=== PATIENT | female | born 1945 | race Caucasian/White ===

== ENCOUNTER 2019-12-28 17:19 | Inpatient (IN) | payer OTHER, MEDICARE ==
[~2019-12-28] VITALS: Ht 157.5 cm; Wt 56.4 kg
[2019-12-28 17:23] VITALS: BP 130/59
[2019-12-28] MEDS ORDERED: LISINOPRIL40 MG PO (17:35)
[2019-12-28] MEDS ORDERED: METFORMIN HCL500 M3 PO (17:35)
[2019-12-28] MEDS ORDERED: EZALLOR SPRINKL10 MG PO (17:36)
[2019-12-28] MEDS ORDERED: LAMOTRIGINE250 MG PO (17:36)
[2019-12-28] MEDS ORDERED: NORVASC5 M1 PO (17:36)
[2019-12-28] MEDS ORDERED: ASA81BEC PO (17:36)
[2019-12-28] MEDS ORDERED: B12INJ PO (17:37)
[2019-12-28 17:46] LABS: URINE BLOOD NEGATIVE (Negative); URINE CLARITY CLEAR; URINE COLOR YELLOW; URINE GLUCOSE-RANDOM* NEGATIVE (Negative); URINE KETONES TRACE (Negative); URINE NITRITE-REFLEX NEGATIVE (Negative); URINE PROTEIN (DIPSTICK) NEGATIVE (Negative); URINE SPECIFIC GRAVITY >= 1.030 (1.005-1.035); URINE UROBILINOGEN 0.2 E.U./dl (0.2-1.0)
[2019-12-28 17:54] LABS: ICTOTEST (BILI CONFIRMATORY) Negative (Negative); URINE BILIRUBIN NEGATIVE (Negative); URINE LEUKOCYTES-REFLEX 1+ (Negative)
[2019-12-28 18:00] LABS: AMP/METHAMP Negative (Negative); BARBITURATES Negative (Negative); BENZODIAZEPINES Negative (Negative); COCAINE Negative (Negative); METHADONE Negative (Negative); OPIATES Negative (Negative); PCP Negative (Negative)
[2019-12-28 18:08] LABS: ABSOLUTE NEUTROPHILS 4.6 thou/uL (1.4-8.2); BASOPHILS 1.2 % (0.0-2.0); EOSINOPHILS 2.1 % (0.0-3.0); HEMATOCRIT 41.2 % (37.0-47.0); HEMOGLOBIN 13.9 gm/dL (12.0-15.0); LYMPHOCYTES 28.5 % (24.0-44.0); MCH 31.1 pg (26.0-34.0); MCHC 33.6 g/dL (28.0-37.0); MCV 92.5 fL (80.0-100.0); MONOCYTES 8.5 % (1.0-8.0); PLATELET COUNT 327 thou/uL (150-400); POLYS 59.7 % (36.0-66.0); RBC 4.46 mil/uL (4.20-5.00); RDW 13.2 % (10.5-14.5); WBC 7.8 thou/uL (4.0-11.0)
[2019-12-28 18:09] LABS: CASTS None Seen /LPF (None Seen); SQUAMOUS 4-10 Moderate /LPF (0-3)
[2019-12-28 18:10] LABS: CALCIUM OXALATE 0-3 Few /LPF (None Seen); YEAST-REFLEX Present (None Seen)
[2019-12-28 18:11] LABS: BACTERIA-REFLEX 1-9 Few /HPF (None Seen); URINE RBC None Seen /HPF (0-2); URINE WBC-REFLEX 6-15 Few /HPF (0-5)
[2019-12-28 18:17] LABS: CALCIUM 8.9 mg/dL (8.5-10.1); CREATININE 1.2 mg/dL (0.6-1.0); POTASSIUM 4.1 mmol/L (3.5-5.1)
[2019-12-28 18:23] LABS: ALBUMIN 4.3 g/dL (3.4-5.0); TOTAL BILIRUBIN 0.6 mg/dL (<0.1-1.0); TOTAL PROTEIN 8.6 g/dL (6.4-8.2)
[2019-12-28 21:30] VITALS: BP 151/78
[2019-12-29 00:16] LABS: TSH 0.901 uIU/mL (0.358-3.740)
--- NOTE | 2019-12-29 00:29 | NUR ---
Arrived via stretcher with x1 staff from the [facility] Emergency Department on 12/28/19 @ 21:30. Arrived on the floor on 12/28/19 @ 19:30 accompanied by x1 staff from the [facility] Emergency Dept. Transferred to bed 527B. Box lunch obtained as patient reported that she had not eaten today. Ate 50% of box and drank 100%of apple juice x 2. A&Ox4, Confusion noted. Tearful at times, referring to who passed 2 years ago. Heart Rate and Rhythm Regular, Lungs CTA bilateraly, ABD Normoactive bowel sounds. Reports loose soft BM x 2 today. Abdomen round and soft. Reports tender area in upper left abdomen upon palpation. Reports diverticulitis and avoids seeds and spicy food. Diabetes 2 reported with Metformin 500 bid medication, no insulin currently used. Skin is soft, warm and dry. Skin on back and buttocks is intact, Skin on front of torso in warm pink and intact. Heels are intact, no boggy and without breakdown. Pedal Pulses Present bilat. Pt reports that "I used to have neuropathy", and denies pain in her feet. Fingers are noted to tremble slightly, reports the trembling is since her stroke. Reports hands are numb. Reports back pain in the middle and lower back. Says that the pain is better if she lies on one side and then the other. Wears glasses. Has x2 hearing aids. [employer] noted when hearing aides are out of ears. No dentures, no teeth in the upper gums. Own teeth in lower gums. Ring on right hand, patient says will not come off, the ring on the left hand was inventoried and sent to the safe in security. Ambulates independently, reports that she likes to have a stand by assist. Reports that is continent and does not require a brief. Reports that sleeps okay, then wakes up in the night. Trazadone 50 provided for insomnia @ 0015. In bed at this writing, bed in low position, bed alarm set, 2 handrails up for patient mobility. Will continue to round q 12 minutes for patient safety.
[2019-12-29 08:29] VITALS: BP 133/61
--- NOTE | 2019-12-29 14:04 | NUR ---
Christi called [facility] and completed the intake assessment and TP. Pt worked at [employer] for 25 years. Pt will likely d/c back to her [facility]'s home. She has been living there for 6 months. Pt has a HX of RI and is seeing Dr Souleymane Herbert, her PCP is Dr Briceno. [facility] will set up f/u appts for this pt for first week of January.
--- NOTE | 2019-12-29 18:51 | NUR ---
PATIENT HAS BEEN TEARFULL TODAY IN REGARDS TO HER HUSBANDS . AT THIS TIME PATIENT IS PARANOID AND STATING "THEY ARE HERE TO TAKE ME AWAY". PATIENT SAYS SHE CAN NOT SLEEP AND DID NOT WANT TO GO INTO HER ROOM SHE FEELS LIKE THEY WILL GET HER. PATIENT CLAIMS THAT THE PEOPLE IN YELLOW WILL TAKE HER TONIGHT. PATIENT UPSET WITH DAUGHTER FOR TREATING HER IN SUCH A BED MANOR. PATIENT STATES "MY DAUGHTER CURSES AT ME AND I DON'T KNOW WHY". VEGETABLE WASHER ATTEMPTED TO CALM PATIENT DOWN BUT CONTINUES TO BE PARINOID WITH WHAT VEGETABLE WASHER AND OTHER MIGHT DO TO HER. WILL REPORT OFF TO CNC WOOD LATHE OPERATOR.
[2019-12-29 19:47] VITALS: BP 92/52
--- NOTE | 2019-12-29 22:25 | H ---
[facility] [place] [address] HISTORY AND PHYSICAL Name: DANNY HAYS Room #: 527B-B ADM IN M.R.#: [id number] Admission: 12/28/19 Attend Phys: Iggy Valladares DO Discharge: Date of : 45 Report #: [id number] THIS REPORT FOR: cc: Tra Briceno MD,Iggy Phoenix MD, DO ~ CC: Iggy Briceno DATE OF SERVICE: 12/29/2019 INPATIENT PSYCHIATRIC EVALUATION ATTENDING PHYSICIAN: Iggy Valladares DO BILINGUAL SALES ASSISTANT: Edgar Suarez MD HAZARD WASTE HANDLER: Dr. Aviles. PSYCHIATRIST: Dr. Ronnell Parham. PCP: Dr. Briceno. REASON FOR ADMISSION: Concern for psychosis, probable history of dementia, history of bipolar disorder as well. HISTORY OF PRESENT ILLNESS: This is a 74-year-old female living with her daughter, Keya. Her daughter, Keya, brought her to the Emergency Room last night. I tried to reach Keya by phone and left her a voicemail, will add some collateral as it is forthcoming. From the Emergency Room report that for the past 2 weeks, patient has been forgetful, losing things around the house. The daughter thought little bit considering the patient's age and the forgetfulness was minor; 4 days ago, the patient developed increasing confusion, routinely asks the same questions repeatedly. The patient has been sad lately, crying most mornings and before bed. The patient became paranoid at the start of the COVID pandemic and withdrew all money from her bank account fearing the barker would close. The patient has an episode of paranoia every 1-2 years. Last episode was about 26 months ago, 2 months before her . After the which was in 01/2018, the patient moved in with children in [place] who evidently accused her of killing her . The patient recently moved to [place] to stay with her daughter. She has had 1 appointment with a psychiatrist here, has a second appointment in January. The patient has been anxious and depressed. The patient was prescribed Lamictal. PAST PSYCHIATRIC HISTORY: Bipolar 1. Hospitalization 2018 around time of husbands , Since 1998 has feature where she will talk in [facility] [address] [place] [address] HISTORY AND PHYSICAL Name: DANNY HAYS Room #: 527B-B ADM IN M.R.#: [id number] Admission: 12/28/19 Attend Phys: Iggy Valladares DO Discharge: Date of : 45 Report #: [id number] voice- not Dissociative in nature according to the daughter. Social HX: 3 x- last marriage was 45 years PAST MEDICAL HISTORY: Three strokes in 2016, last one was 04/18/2017; generalized anxiety; history of diverticulitis, diabetes mellitus. Family Psych Hx: Maternal Grandmother suicide, daughter in [place] Alcoholism REVIEW OF SYSTEMS: Denied any cough, fever, chills, shortness of breath, nausea, vomiting, suicidal or homicidal ideation. HOME MEDICATIONS: Metformin 500 mg p.o. b.i.d., lisinopril 40 mg p.o. daily, amlodipine 5 mg p.o. daily, lamotrigine 100 mg p.o. daily, aspirin 81 mg p.o. oral daily, rosuvastatin 10 mg p.o. daily, vitamin B12 1000 mcg p.o. weekly. ALLERGIES: No known allergies. SOCIAL HISTORY: Denied tobacco, alcohol or recreational drug use. ADDITIONAL REVIEW OF SYSTEMS: From the ER: CONSTITUTIONAL: Denies fever, chills, malaise, unexplained weight change. EYES: Denies eye pain, visual change or discharge. HENT: Denies hearing changes, ear drainage, ear infections, ear pain, neck pain or neck stiffness. RESPIRATORY: Denies cough, shortness of breath, hemoptysis or respiratory distress. CARDIOVASCULAR: Denies chest pain, chest pain with exertion or edema. GASTROINTESTINAL: Denies abdominal pain, nausea, vomiting or diarrhea. GENITOURINARY: Denies burning, frequency or dysuria. MUSCULOSKELETAL: Denies back pain, joint pain, muscle weakness or myalgias. SKIN: Denies rash. NEUROLOGIC: Denies weakness, headache, loss of consciousness. PSYCHIATRIC: As above. Otherwise, 10-point review of systems was negative. Weight 54.79 kg, BMI 21.8. PHYSICAL EXAMINATION: Grossly normal. LABORATORY DATA: From the Emergency Room, white count 7.8, H and H 13.9 and 41.2, platelet count 327, sodium 142, potassium 4.1, chloride 104, bicarbonate 26, BUN 19, creatinine 1.2, estimated GFR 44, glucose 149, calcium 8.9, total bilirubin 0.6, AST 18, ALT 29, alkaline phosphatase 144, total protein 8.6, albumin 4.3, vitamin B12 of 2111. TSH 0.901. Urinalysis was positive for bacteria, calcium oxalate, squamous epithelial cells. White blood cell count, leukocyte esterase and yeast microbiology culture on the urine has been sent. [address] [address] HISTORY AND PHYSICAL Name: DANNY HAYS Room #: 527B-B ADM IN .Pieter.#: [id number] Admission: 12/28/19 Attend Phys: Iggy Valladares, DO Discharge: Date of : 45 Report #: [id number] MEDICATIONS IN THE HOSPITAL: The ER gave her Keflex. I elected to start her on minocycline 100 mg b.i.d. for 10 days. She is on atorvastatin 10 mg p.o. at bedtime and house B12 1000 mcg twice a week IM which we will discontinue as her level was high, lisinopril 40 mg p.o. daily, lamotrigine 100 mg p.o. daily, aspirin 325 mg p.o. daily, Norvasc 5 mg p.o. daily, metformin 500 mg b.i.d., trazodone 50 mg p.o. at bedtime p.r.n. Otherwise, house PRNs. No imaging done yesterday. When I interviewed her today, she stated that she does have some memory problems. She did not know exactly why her daughter brought her to the hospital. She is oriented to person, place, situation and time. She had no specific complaints. She denied SI, HI, auditory, visual, or tactile hallucinations. PHYSICAL EXAMINATION: GENERAL: Frail appearing. Normal gait and station. MENTAL STATUS EXAMINATION: This is a well-developed, appearing undernourished female, wearing glasses, appearing stated age. Attention fair. Concentration fair. Speech is normal in rate. Thought process, linear and goal directed. Thought content, relative poverty of thought. The patient does report hearing not working in her right ear. No psychomotor agitation. No psychomotor retardation. Mood and affect were congruent, euthymic, fair range. Insight limited. Judgment fair. Fund of knowledge at least average. FORMULATION: A 74-year-old female brought in for symptoms of psychosis. The patient has a probable history of dementia process. I think at this point, the patient would benefit from Seroquel for anxiety and possibly psychosis. I will get her started on this. Discussed some more with the daughter, also I have some questions for the daughter that will need to be answered to gather to help workup. Daughter states she wants patient to come back to live with her. She reports remote memories well preserved. I discussed we will do cognitive screen. ESTIMATED LENGTH OF STAY: 10-14 days. STRENGTHS: Insured, supportive family. WEAKNESSES: Advancing age, multiple morbidities, history of mental illness. [facility] [address] [place] [address] HISTORY AND PHYSICAL Name: DANNY HAYS Room #: 527B-B ADM IN M.R.#: [id number] Admission: 12/28/19 Attend Phys: Iggy Valladares DO Discharge: Date of : 45 Report #: [id number] Time spent on this case at least 45 minutes. <ELECTRONICALLY SIGNED> By: Iggy Valladares DO 12/29/19 2225 1309 1430 Iggy Valladares, DO /nt
--- NOTE | 2019-12-30 01:05 | NUR ---
Assumed care of patient this pm shift. Patient is confused and oriented to self at this time. Patient denies hi/si. Patient takes medications whole. Patient ambulates without assistance; patients gate is unsteady. Patient states that "I didnt do anything wrong." Patients assessment shows clear breath sounds, active bowel sounds, and s1 s2 heard with auscultation. We will continue to monitor.
[2019-12-30 05:27] LABS: HEMATOCRIT 35.4 % (37.0-47.0); MCH 31.1 pg (26.0-34.0); MCHC 33.4 g/dL (28.0-37.0); MCV 93.1 fL (80.0-100.0); RBC 3.81 mil/uL (4.20-5.00); RDW 13.3 % (10.5-14.5); WBC 6.1 thou/uL (4.0-11.0)
[2019-12-30 05:33] LABS: HEMOGLOBIN 11.8 gm/dL (12.0-15.0)
[2019-12-30 05:40] LABS: CALCIUM 9.5 mg/dL (8.5-10.1); CREATININE 1.2 mg/dL (0.6-1.0); MAGNESIUM 1.4 mg/dL (1.8-2.4); POTASSIUM 4.5 mmol/L (3.5-5.1)
[2019-12-30 07:52] VITALS: BP 126/55
[2019-12-30 11:20] VITALS: BP 151/93
[2019-12-30 14:30] VITALS: BP 126/55
--- NOTE | 2019-12-30 14:35 | NUR ---
ASSUMED CARE AT 0700 THIS MORNING. PT. IN HER ROOM LAYING IN HER BED. SHE IS TEARFUL. SHE HAD TO BE COAXED INTO TAKING HER MEDICATIONS TODAY. SHE KEPT STATING, "I DON'T TAKE ANY MEDICATIONS". SHE DID, HOWEVER, TAKE THE MEDICATIONS. SHE WAS TEARFUL WHEN SHE CAME ONTO THE UNIT TODAY. HER DAUGHTER CALLED AND WAS GIVEN AN UPDATE.
[2019-12-30 19:35] VITALS: BP 160/72
--- NOTE | 2019-12-30 21:00 | NUR ---
Assumed care of patient this pm shift. Patient displays some paranoia and anxiety with RN. Patients affect is flat. Patient denies si. Patient alert and oriented to self only. Patient takes medications whole. Patient ambulates without assistance. Patient states that she needs to urinate but refuses to use the toilet in her room. Patient does not display any aggressive behaviors. Patients assessment shows clear breath sounds, active bowel sounds, and s1 s2 heard with ausculatation. Patient is dressed neatly in her own clothing. We will continue to monitor.
[2019-12-30 23:05] VITALS: BP 160/72
[2019-12-31 00:45] VITALS: BP 111/41
--- NOTE | 2019-12-31 00:54 | NUR ---
Patient fell this evening at 1121pm. Patient was holding the rail and lost balance and fell to the floor landing in a supine position hitting the back of her head. Vital signs were taken immediately after the fall, then within 15 minutes and finally an hour later. Vital signs appear stable. Patients orientation at the time of fall was her baseline at this point exhibiting confusion. No change from pre-fall status. Patient obtained a bruise on the back of her head. Patti Chavez NP was notified. Patients family was notified. We will continue to monitor.
[2019-12-31 04:49] LABS: ABSOLUTE NEUTROPHILS 9.7 thou/uL (1.4-8.2); BASOPHILS 0.4 % (0.0-2.0); EOSINOPHILS 0.3 % (0.0-3.0); HEMATOCRIT 36.8 % (37.0-47.0); HEMOGLOBIN 12.2 gm/dL (12.0-15.0); MCHC 33.3 g/dL (28.0-37.0); MCV 93.2 fL (80.0-100.0); MONOCYTES 4.2 % (1.0-8.0); PLATELET COUNT 250 thou/uL (150-400); POLYS 86.1 % (36.0-66.0); RBC 3.95 mil/uL (4.20-5.00); RDW 13.5 % (10.5-14.5); WBC 11.3 thou/uL (4.0-11.0)
[2019-12-31 05:08] LABS: ALBUMIN 3.9 g/dL (3.4-5.0); CALCIUM 9.9 mg/dL (8.5-10.1); CREATININE 1.4 mg/dL (0.6-1.0); POTASSIUM 5.4 mmol/L (3.5-5.1); TOTAL BILIRUBIN 0.4 mg/dL (<0.1-1.0); TOTAL PROTEIN 7.7 g/dL (6.4-8.2)
[2019-12-31 07:39] VITALS: BP 117/50
--- NOTE | 2019-12-31 10:39 | NUR ---
AM BLOOD PRESSURE RECORDED 117/50 VIA MACHINE-JEANNE RECHECK BP 100/58-AM AMLODAPINE HEL- ON UNIT AND NOTIFIED OF ABOVE,VISIBLE SITTING WITH PEERS IN DAYRROM-TEARFUL AT TIMES-ANXIOUS FACIAL EXPRESSION AND RATES ANXIETY 9/10-DENIES SI/SH. ORIENTED TO PERSON/HOSPITAL BUT STATES SHE "HAS NO IDEA" WHY SHE WAS HERE
[2019-12-31 19:43] VITALS: BP 131/54
--- NOTE | 2020-01-01 03:20 | NUR ---
Pt. rested quietly at intervals during the night when checked on during frequent rounds. She did have a episode of being paranoid and expressed that she was afraid. Pt. voiced that she thought someone is going to come into her room. Reassurance given for her safety. No c/o pain.
[2020-01-01 07:00] VITALS: BP 144/55
--- NOTE | 2020-01-01 09:11 | NUR ---
Patient observed without walker in hallway. Upon approach to encourage patient's use of the walker she stated that she needed to use the restroom. CALENDERER reminded patient of her room number and pointed her in the right direction (opposite of where she was headed.) Patient irritable in response, "I know that." Approximately 15 minutes later patient noted to be standing in the doorway of her room. Her walker was stationed in the hallway 5ft from her. CALENDERER and LIDDER encouraged use of her walker as she has had a previous fall. Patient responded, "I fell because I was dizzy. I don't need to use the walker all the time." Irritable. Once again patient was encouraged to use walker at all times unless told differently by PT.
--- NOTE | 2020-01-01 11:00 | NUR ---
Assumed care at 0700. Very paranoid at each question for assessment pt. was asked--"Why are you asking me this?" She did not initiate any conversation with any peer or staff. She was med compliant. She needed talking into taking her meds. She mentioned she would get tired/sleepy if she took the Quetiapine. She did not sleep after the med. Several times she would linger out in the hallway just observing the milieu.
[2020-01-01 14:00] VITALS: BP 139/55
[2020-01-01 14:09] LABS: HEMATOCRIT 43.2 % (37.0-47.0); HEMOGLOBIN 13.9 gm/dL (12.0-15.0); MCH 30.8 pg (26.0-34.0); MCHC 32.3 g/dL (28.0-37.0); MCV 95.4 fL (80.0-100.0); RBC 4.53 mil/uL (4.20-5.00); RDW 13.7 % (10.5-14.5); WBC 9.6 thou/uL (4.0-11.0)
[2020-01-01 14:16] LABS: CREATININE 1.3 mg/dL (0.6-1.0); MAGNESIUM 1.3 mg/dL (1.8-2.4)
--- NOTE | 2020-01-01 14:30 | NUR ---
TUNDE called and left a VM with pt's dght Keya. This included the report that pt will be ready to d/c on Saturday and to call back with the time of mushroom picker and the times she had for the f/u aapts she was scheduling.
[2020-01-01 19:53] VITALS: BP 139/55
[2020-01-01 20:40] VITALS: BP 139/55
--- NOTE | 2020-01-01 21:30 | NUR ---
Late Note: approximately 1620 after she had been standing in the hallway she became woosy, was prevented from falling by staff. She was taken to her room and put to bed. GR=783/47, p=74, R=16, Pulse OX=96%. Skin was warm and dry, COLEEN, carbon paste mixer operator equal, bilateral, responding to verbal stimuli. Dr. Valladares and Dr. Azul notified. EKG, Troponin, 1/2 NS IV 1 liter over 4 hours were ordered in addition to AM labs by Dr. Azul. Dr. Azul informed of EKG automated reading. IV bolus started 1814 started by IV team memberin right forearm. Pt. was put in recliner, taken to the dayroom for observation. She declined dinner, sleeping with IV infusing without difficulty. Dr. Azul ordered DANA-Patti Chavez to see pt. which she did. She reported not seeing significance in ST segment and would look at the Troponin level when it came back.
--- NOTE | 2020-01-01 22:32 | NUR ---
Assumed care of patient this pm shift. Patient sitting in mileu with IV running. Patient appears scared and displays signs of paranoia. Patient is alert to self. Patients affect is blunted. Patient denies hi/si. Patient denies pain. Patients assessment shows clear breath sounds, active bowel sounds, and s1 s2 heard with auscultation. Patient takes medications whole. Patient ambulates without assistance but has a hx of falls. Patient cooperative with nurse. We will continue to monitor.
[2020-01-02 05:34] LABS: HEMATOCRIT 38.5 % (37.0-47.0); HEMOGLOBIN 12.8 gm/dL (12.0-15.0); MCH 30.9 pg (26.0-34.0); MCHC 33.3 g/dL (28.0-37.0); MCV 92.7 fL (80.0-100.0); RBC 4.15 mil/uL (4.20-5.00); WBC 9.9 thou/uL (4.0-11.0)
[2020-01-02 05:42] LABS: CALCIUM 9.8 mg/dL (8.5-10.1); CREATININE 1.1 mg/dL (0.6-1.0); MAGNESIUM 1.5 mg/dL (1.8-2.4); POTASSIUM 4.4 mmol/L (3.5-5.1)
[2020-01-02 09:24] VITALS: BP 187/44
[2020-01-02 11:31] VITALS: BP 187/44
--- NOTE | 2020-01-02 11:45 | NUR ---
PATIENT HAS BEEN UP AND OUT ON THE UNIT, SITTING IN DAY ROOM MOST OF THE TIME. PATIENT IS ALERT, FORGETFUL, CONFUSED, AMBULATES WITH ASSIST OF ROLLER WALKER. PATIENT TOOK MORNING MEDICATION WHOLE WITHOUT DIFFICULTY. APPETITE IS POOR, PATIETNT DECLINE BREAKFAST, SHE DID DRINK ONE BOTTLE OF ENSURE. PATIENT DENIES SUICIDAL, AND HOMICIDAL IDEATION. MOOD IS BLUNTED, AFFECT FLAT. PATIENT HAS BEEN TAKING OFF/ON NAP IN DAY ROOM. PATIENT DENIES HAVING PHYSICAL PAIN. NO SIGN OF ACUTE DISTRESS NOTED AT THIS TIME, WILL MONITOR FOR SAFETY.
--- NOTE | 2020-01-02 12:14 | NUR ---
SW received a message from Keya Dubon, pt's daughter inquiring about pt's status. She specifically wanted to know if pt is "still repeating herself and freaking out because she will be at home alone" while daughter is working and dtr "wants to know that this is safe." TUNDE returned dtr's call and left a voice msg asking for a return call.
--- NOTE | 2020-01-02 13:09 | NUR ---
SW spoke to Dr Valladares re: dtr's concern about pt being left at home alone. Dr. Valladares informed pt needs constant supervision. He stated he would call dtr to discuss this with her.
--- NOTE | 2020-01-02 14:41 | NUR ---
SW received a return call from pt daughter, Keya. TUNDE referred her to Dr. Valladares to discuss pts supervision needs at this time.
--- NOTE | 2020-01-02 14:53 | NUR ---
Pt daughter reports patient has two appointments on January 17 Dr. Briceno @[address] Aviles @12.
[2020-01-02 19:17] VITALS: BP 133/71
[2020-01-02 23:15] VITALS: BP 133/71
--- NOTE | 2020-01-03 01:52 | NUR ---
Assumed care of patient at change of shift. Pt. up at kay in hallway with walker. Gait slow and steady. Pt. is alert to name only and confused to date and time. Pt. took meds whole with water. NO coughing nor choking noted after swallowing. Pt. denies pain and no signs or symptoms of pain or distress noted.
[2020-01-03 07:55] VITALS: BP 127/67
--- NOTE | 2020-01-03 10:45 | NUR ---
PATIENT WAS IN BED SLEEPING WHEN CARE ASSUMED, STATES "I FEEL VERY SLEEPY TODAY". PATIENT ENCOURAED TO GET OUT OF BED FOR BREAKFAST. SHE DID GET OUT OF BED FOR BREAKFAST, CONSUMED ABOUT 75%. PATIENT TOOK ALL MONING MEDICATIONS WITHOUT DIFFICULTY. PATIENT DENIES SUICIDAL/HOMICIDAL IDEATION. SHE DENIES DEPRESSION/ANXIETY. PATIENT STATES LAST BOWEL MOVEMENT WAS YESTERDAY, "AM ABOUT TO HAVE ANOTHER ONE HERE IN A LITTLE BIT. PATIENT IS FORGETFUL, CONFUSED AT TIMES. SHE IS CALM, COOPERATIVE WITH CARE. AFFECT IS BRIGHT, MOOD IS DEPRESSED. PATIENT AMBULATES WITH ASSSIST OF ROLLER WALKER, GAIT SLIGHTLY UNSTEADY. SHE DENIES HAVING PHYSICAL PAIN. NO SIGN OF ACUTE DISTRESS NOTED AT THIS TIME, WILL MONITOR FOR SAFETY.
--- NOTE | 2020-01-03 11:52 | NUR ---
Weekly RT Note Date of Admission: 12/28/2019 Date of Activity Therapy Assessment:12/29/2019 Activity Goal:Coping skills, anxiety management Initial Goal:1:1, engagement in the milieu Weekly progress towards goal:Did not achieve Group participation level:NA due to COVID 19 Behaviors observed:Pt did not participate in any 1:1 sessions or small groups with RT. Pt was often focused on her walker and often appeared confused and agitated. Plan: No change towards goal
--- NOTE | 2020-01-03 14:39 | NUR ---
TUNDE spoke to Dr. Valladares who informed patient needs contant supervision, therefore, it is not safe for patient to discharge home with her daughter who works outside the home and would have to leave patient alone while she works. The discharge plan is to find skilled placement for patient. Patient will need to apply for Medicaid. Daughter has been notified of the d/c plan.
[2020-01-03 19:54] VITALS: BP 129/30
--- NOTE | 2020-01-04 04:14 | NUR ---
ASSUMED CARE ON 01/03/20 @ 1915, LIKES TO BE ADDRESSED BY MIDDLE NAME OF ANMOL. SEATED IN THE MILEU, WATACHING TV WITH PEERS. ALERT AND ORIENTED TO SELF AND ONLY. CONFUSED BUT ALERT. DENIES PAIN. FLAT AFFECT NOTED. SLEEPING IN BED AT THIS WRITING, WILL CONTINUE TO MONITOR Q 12 MINUTES FOR PATIENT SAFETY.
--- NOTE | 2020-01-04 07:54 | EKG ---
[facility] [place] [address] ELECTROCARDIOGRAM REPORT Name: DANNY HAYS Room #: [facility] ADM IN M.R.#: [id number] Admission: 12/28/19 Attend Phys: Iggy Valldaares DO Discharge: Date of : 45 Report #: [id number] THIS REPORT FOR: cc: Tra Briceno MD, Neal A. MD Lundgren,Sigifredo Schmitt MD [facility] ~ THIS REPORT FOR: //name// [facility] Test Date: 2020-01-01 Test Time: 18:21:23 Pat Name: DANNY HAYS Department: Room: [facility] Gender: F Precision Honer: Katie TANNER : 1945 Requested By: Nicolas Azul Order Number: [id number] MD: Sigifredo Aviles Measurements Intervals [address] Rate: 73 P: 39 DC: 197 QRS: -2 QRSD: 83 T: 42 QT: 390 QTc: 430 Interpretive Statements Sinus rhythm ST elevation suggests early repolarization, pericarditis, or injury Baseline wander in lead(s) II,III,aVF No previous ECG available for comparison Electronically Signed On 01-04-2020 7:52:14 CDT by Sigifredo Aviles [email or web address] <ELECTRONICALLY SIGNED> By: Sigifredo Aviles MD, FAC 01/04/20 [id number] Sigifredo Aviles MD, [facility] /EPI
[2020-01-04 08:20] VITALS: BP 143/44
--- NOTE | 2020-01-04 09:00 | NUR ---
PT OUT IN DINNING ROOM EATING BREAKFAST. PT SEEMS FLAT, NO EMOTION. PT HOOPA. PT UP WITH WALKER OR WITH ASSIST. PT DENIES ANY PAIN. PT TOOK MEDS WITHOUT ANY ISSUES.
[2020-01-04 09:24] VITALS: BP 143/44
--- NOTE | 2020-01-04 10:56 | NUR ---
SW spoke with pt's daughter and she requested that referral be sent to [facility] for skilled to home. dght also reported that she wants to take her mom home until she can no longer the dementia behaviors. There are supports in the home to faciltiate that. 2nd is [facility].
--- NOTE | 2020-01-04 15:00 | NUR ---
PT SITTING IN DINING ROOM DURING GROUP. PT TOOK MEDS WITHOUT ANY ISSUES.
--- NOTE | 2020-01-04 15:00 | NUR ---
Pt was denied at [facility] as she does not have a skillable need. CHRISTI called [facility] and asked for a reevautaion with our therpay dept, and asked Dr baxter to order OT. Christi then sent referral to [facility] [place]
--- NOTE | 2020-01-04 17:28 | NUR ---
PT NEEDED REMINDED TO TAKE MEDICATION, MUST STAND WITH HER DURING MEDICATION TIME.
[2020-01-04 19:37] VITALS: BP 116/67
--- NOTE | 2020-01-05 01:39 | NUR ---
ASSUMED CARE ON 01/04/20 @ 19:15, SEATED IN THE DAY ROOM, NOT WATCHING TV, OBSERVING PEERS ACTIVITY BUT NOT PARTICIPATING IN CONVERSATION. COOPERATED WITH ASSESSMENT. LIKES TO BE CALLED ANMOL, HER MIDDLE NAME. HRRR, LUNGS DIMINISHED BUT CLEAR. ABD NORMACTIVE BOWEL SOUNDS, DENIES SI, HI. REPORTS DEPRESSION FROM OF AND DAILY SADNESS, BEGINS TO CRY WHEN SPEAKING OF 'S 2 YEARS AGO AND 2 SISTERS DEATHS MORE RECENTLY. REPORTS ANXIETY ABOUT BEING IN THE HOSPITAL AND USES THE WORD PARANOIA, BUT CANNOT ARTICULATE WHAT SHE IS PARANOID REGARDING. QUITE HARD OF HEARING, AND IT COULD BE THAT THIS REDDING CONTRIBUTES TO HER CONFUSION. A&OX2. PO FLUIDS ENCOURAGED. TOOK MEDS WHOLE WITH WATER. IN BED AT THIS WRITING, EYES CLOSED, RESPIRATIONS EVEN AND UNLABORED, BED ALARM SET.
[2020-01-05 07:53] VITALS: BP 144/79
--- NOTE | 2020-01-05 12:58 | NUR ---
Up ambulating t/o unit with walker with slow, steady gait. Alert and oriented to name only. Some coherent speech, at other times appears confused and has difficulty hearing with multiple requests to repeat statements. Was crying after working with OT stating she was upset d/t her and sisters had . No tears noted, just facial contortions. Settled down after a few minutes and came out to the day room to listen to music with peers. Denies SI/HI. Breath sounds clear t/o. Reg HR auscultated. Color pale pink with brisk capillary refill and palpable peripheral pulses. Independent with voiding. Active bowel sounds over large, full, soft abdomen. Per report, no BM in 3 days.
[2020-01-05 13:19] VITALS: BP 119/61
[2020-01-05 13:22] VITALS: BP 129/54
[2020-01-05 13:26] VITALS: BP 108/59
--- NOTE | 2020-01-05 13:28 | NUR ---
Pt was denied at [facility] as johanna turner. SW then called [facility] and suggested that she speak with Hill baxter at 3pm to go over why this pt is better going home with 24/7 supervision. Pt does not meet skilled criteria. Medicaid application has been initaited
[2020-01-05 16:10] LABS: HEMATOCRIT 39.9 % (37.0-47.0); HEMOGLOBIN 13.2 gm/dL (12.0-15.0); MCH 31.1 pg (26.0-34.0); MCHC 33.1 g/dL (28.0-37.0); MCV 93.8 fL (80.0-100.0); RBC 4.26 mil/uL (4.20-5.00); RDW 13.3 % (10.5-14.5); WBC 7.9 thou/uL (4.0-11.0)
[2020-01-05 16:20] LABS: CALCIUM 10.8 mg/dL (8.5-10.1); CREATININE 1.3 mg/dL (0.6-1.0); POTASSIUM 4.8 mmol/L (3.5-5.1)
[2020-01-05 19:44] VITALS: BP 137/64
--- NOTE | 2020-01-05 20:30 | NUR ---
Assumed care of patient at start of shift. Pt. is sitting in day room in a recliner. She is receiving an IV bolus of 1/2 NS at 250/hr through of an @22 guage to right right forearm. Site with without edema, redness, swelling, or leaking. Pt. was very lethargic and would not answer some questions. When she did speak she spoke in a whipsered tone. She stated her name, but would not answer questions regarding place, date, or situation. Her affect was flat and she would barely open her eyes when she answered the few questions she did.
--- NOTE | 2020-01-06 01:05 | NUR ---
IVF completed. IV site is without redness, edema, or drainage. Hemostasis obtained after IV removal. Pt. became slightly combative with removal of IV and tape. She eventually calmed down and was put to bed. She has been resting quietly with eyes closed. Respirations even and non-labored. No signs or symptoms of pain or distress noted.
[2020-01-06 01:12] VITALS: BP 137/64
--- NOTE | 2020-01-06 02:28 | NUR ---
No change in patient status. She is currently resting in bed with eyes closed. Respirations are even and non-labored. No signs or symptoms of pain or distress noted.
[2020-01-06 05:40] LABS: HEMATOCRIT 36.3 % (37.0-47.0); HEMOGLOBIN 12.2 gm/dL (12.0-15.0); MCHC 33.6 g/dL (28.0-37.0); MCV 92.1 fL (80.0-100.0); RBC 3.94 mil/uL (4.20-5.00); RDW 13.2 % (10.5-14.5); WBC 6.3 thou/uL (4.0-11.0)
[2020-01-06 05:59] LABS: CALCIUM 9.6 mg/dL (8.5-10.1); CREATININE 1.2 mg/dL (0.6-1.0); MAGNESIUM 1.8 mg/dL (1.8-2.4); POTASSIUM 3.9 mmol/L (3.5-5.1)
--- NOTE | 2020-01-06 08:08 | NUR ---
Assumed care 0700. Firmly c/o's of fear of falling. says when she gets up from bed she falls backward. She reports pain in abdomen, back, and,and can't number the pain.
[2020-01-06 09:42] VITALS: BP 116/85
[2020-01-06 15:50] VITALS: BP 120/70; BP 130/80
--- NOTE | 2020-01-06 17:40 | NUR ---
Pt. came out for all three meals. Compliant with meds. After lunch toileted, using w/c. Orthostatic VS= JV=272/80 P=66 sitting; KH=471/70 P=78 standing. c/o slight dizziness and nausea after lunch-given basin--had no emesis. Given water-took a few sips. Encouraged to dring more fluids. Nurse spoke with daughter Kyea at [phone] and reported when talked to her around 0900 today she thought her mother was doing better today. Daughter stated that pt. had similar symptoms to dizziness and nausea previously when she was having a stroke and perhaps she could be having TIA's.
[2020-01-06 19:59] VITALS: BP 151/81
[2020-01-06 22:00] VITALS: BP 151/81
--- NOTE | 2020-01-07 00:12 | NUR ---
Assumed care of patient this pm shift. Patient sitting on her bed in her room. Patient reports that she gets dizzy when she stands up. Patient denies pain. Patient denies hi/si. Patient is dressed neatly in her own attire. Patients affect is blunted. Patients assessment shows clear breath sounds, active bowel sounds, and s1 s2 heard with auscultation. Patient appears to be more grounded this evening than prior. We will continue to monitor per hospital protocol.
[2020-01-07 07:57] VITALS: BP 163/67
--- NOTE | 2020-01-07 11:06 | NUR ---
Alert and orientated X4 this AM. Mostly calm but was crying after breakfast d/t of 1 yr ago. Expressing feelings of being an imposition on her daughter and son in law. Calmed down after about 10 min then was participating in group with peers without s/o distress. Denies SI/HI. Breath sounds clear t/o, bilaterally equal. Reg HR auscultated. Color pink with brisk capillary refill and palpable peripheral pulses. No edema noted. Independent with voiding. States she had a BM yesterday and this AM. Active bowel sounds over soft, large rounded abdomen. Ambulating with regular, slow gait with walker. OT working with her this AM with self care.
[2020-01-07 16:32] VITALS: BP 145/66
[2020-01-07 20:09] VITALS: BP 158/92
--- NOTE | 2020-01-08 00:27 | NUR ---
Care assumed of patient at 1915: Patient seated in dayroom at start of shift. Patient not observed interacting with other peers. Calm, pleasant and cooperative. Alert and oriented x4. Presents with flat affect, depressed mood. Denies depression. Reports anxiety rated 2/10. Patient denies SI/HI/AH/VH. Patient did report that she wanted to go home. Spoke about her conversation with her daughter today. Reports that it went well. Spoke of her 4 children. Patient ate 100% HS snack. Took HS medication whole without difficulty. Later in the shift, patient became tearful. Stating over and over "it is my fault". Stating that she misses her . Inconsolable at times. Patient retired to bed at a reasonable hour but was not able to fall asleep. Patient fell asleep later in the night and appears to be resting quietly at this time.
[2020-01-08 07:15] VITALS: BP 195/70
[2020-01-08 08:20] VITALS: BP 140/81
--- NOTE | 2020-01-08 08:46 | NUR ---
PT IN DINING ROOM. PT HAS LIGHT SPOKEN VOICE, PT SEEMS [place]. PT DENIES ANY PAIN. PT USES WALKER WHEN AMBULATING. ASKED PT ABOUT A SHOWER AND SHE STATED SHE DIDN'T WANT TO TAKE A SHOWER WITH ANYONE ELSE. PT DIDN'T UNDERSTAND ABOUT SHE CAN TAKE A SHOWER IN HER ROOM OR IN SHOWER ROOM. PT TOOK MEDS WITHOUT ANY ISSUES.
[2020-01-08 10:49] VITALS: BP 140/81
--- NOTE | 2020-01-08 13:35 | NUR ---
Nutrition: Following up for oral intake progress. Met w/ pt in day area prior to lunch. She continues on an 1800 kcal carb controlled diet. Po intake was low-fair in earlier admit, but in the last week has nearly doubled now. Meal average increased from 42% from 01/02 - 01/03 to 75% in the last 3 consecutive days 01/04 - 01/06. Pt states she is eating normal amounts for herself, at her baseline. Describes herself as not a "big eater." Used to weigh 170# and over the last 2 yrs has worked hard to lower drop wt by 40#. She intentionally did this by no longer overeating, listening to her body and stopping when full. Dislikes red meat, prefers chicken, turkey or tuna and boiled eggs. Adjusted future menu preferences to support pt's goals. BGs very well maintained, ranging 111-148 mg/dl all week, on metformin 500 mg BID. Will change to low nutrition risk now that meal averages greatly improved.
--- NOTE | 2020-01-08 17:36 | NUR ---
PT HAS NOT COMMUNICATED VERY MUCH TODAY. PT CITIZEN [place]. PT ENCOURAGED TO TAKE MEDICATION FOR TONIGHT. NO BEHAVIORS NOTED.
[2020-01-08 19:31] VITALS: BP 139/69
--- NOTE | 2020-01-09 00:15 | NUR ---
Care assumed of patient at 1915: Patient seated in dayroom at start of shift. Patient remained quiet and to herself. Interacted well with nurse and other peers when approached. Presents with flat affect but was not tearful. Denies depression and anxiety this shift. Denies SI/HI/AH/VH. Patient alert and oriented x4. Spoke of conversation that she had with her daughter earlier in the day. Patient denies pain or discomfort. No delusional or paranoia behaviors observed. Patient denied any concerns. Patient reported goal was to go home. Patient then smiled and stated she knew it would be a couple days. Patient took HS medication whole without difficulty. Ate 100% HS snack. Patient assisted to the bathroom with supervision x1, using walker appropriately. Patient did become forgetful on location of her bathroom. Patient retired to bed at a reasonable hour and was able to fall asleep without difficulty. Patient resting quietly at this time.
[2020-01-09 07:43] VITALS: BP 132/65
--- NOTE | 2020-01-09 16:07 | NUR ---
Up ambulating in unit with walker without s/o distress. Alert and orientated X4. Conversive. Denies SI/HI. Pleasant and cooperative. Took shower and shampooed hair with minimal assistance. One episode of being tearful d/t of . Breath sounds clear t/o. Reg HR auscultated. Color pink with brisk capillary refill and palpable peripheral pulses. No edema noted. Independent with voiding. Active bowel sounds over soft, large rounded abdomen. Participating in groups today. No s/o distress.
[2020-01-09 19:40] VITALS: BP 152/70
--- NOTE | 2020-01-09 21:16 | NUR ---
Care assumed of patient at 1915: Patient laying in bed at start of shift. Patient awake, alert. Calm, pleasant and cooperative. Alert and oriented x4. Denies SI/HI/AH/VH. Patient presented with appropriate affect until she was asked about having depression and anxiety. At that point, patient became tearful. Patient was able to express emotions through the tears. States that she is feeling sad due to losing her and both sisters in the last 2 years. Reports that she will always be sad and tearful when she thinks about them. Reported depression rated 3/10, denied anxiety. Patient was able to talk through her emotions and smile at the end of the conversation. Denies pain or discomfort. Joined the [place] for HS snack. Ate 100% HS snack. Took HS medication whole without difficulty. Interacting well with staff and peers. No s/s of paranoia or delusional behaviors observed. Patient able to retire to bed at a reasonable hour and has been resting quietly.
[2020-01-10 07:50] VITALS: BP 161/84
[2020-01-10 10:34] VITALS: BP 161/84
--- NOTE | 2020-01-10 11:13 | NUR ---
1110 RESUMMED CARE FROM OVERNIGHT SHIFT THIS AM, PATIENT IN DAY ROOM TALKING WITH ROOMMATE. PATIENT ATE BREAKFAST TOOK MEDICATION WITHOUT INCIDENCE. PATIENTS ABDOMEN SOFT ROUND BOWEL SOUNDS PRESENT LUNGS CLEAR PATIENT DENIES AI/HI/AH/VH AT PRESENT. PATIENT WAS TEARFUL THIS AM BECAUSE SHE MISS HER WHO IS . PATIENT IS AFRAID TO BE IN ROOM ALONE AND DID NOT REALLY WANT TO SIT IN DAY ROOM. I ASKED PATIENT TO SIT AT FIRST TABLE SO I COULD KEEP AN EYE ON HER PATIENT IS CONFUSED AND SOMETIMES FORGETFUL. I TRIED TO CALL PATIENTS DAUGHTER NO ANSWER WILL CONTINUE TO MONITOR FOR BEHAVIORS AND SAFETY.
[2020-01-10 19:43] VITALS: BP 158/64
--- NOTE | 2020-01-10 21:01 | NUR ---
ASSUMED CARE ON 01/10/20 @ 19:15, CONFUSED ANDORIENTED X 4, HOWEVER ASKS REPEATEDLY, "WHAT DO I DO, WHY ARE PEOPLE LOOKING AT ME?" REPORTS BM TODAY, ABD SOUNDS NORMOACTIVE. HRRR, LUNGS CTA. HARD OF HEARING.
[2020-01-11 01:20] VITALS: BP 158/64
--- NOTE | 2020-01-11 05:59 | NUR ---
SLEPT WELL ONCE ASLEEP, WITH 7.8 HOURS SLEEP OVERNIGHT.
[2020-01-11 07:33] VITALS: BP 137/76
--- NOTE | 2020-01-11 10:45 | NUR ---
Up ambulating with steady gait with walker. Alert and orientated X 4, states she is looking forward to discharge. Denies SI/HI. Appropriate questions. Breath sounds clear. Reg HR auscultated. Color pink with brisk capillary refill and palpable peripheral pulses. No edema noted. Active bowel sounds over soft, flat abdomen. Independent with voiding. Refused Miralax this AM stating she had a BM yesterday and this morning.
[2020-01-11 12:45] VITALS: BP 150/61
--- NOTE | 2020-01-11 15:49 | NUR ---
RT Progress Note- Participation has improved. She displays less paranoia though continues to be reserved in socialization. Patient does also ask questions such as, "am I bothering you?" or becomes self conscious of the work she is doing. Group participation includes exercise, music jeopardy, poppy flower craft, and taking risks game.
[2020-01-11 19:00] VITALS: BP 162/71
[2020-01-12] VITALS (7 sets, daily range): BP systolic 110–162; BP diastolic 52–75
--- NOTE | 2020-01-12 01:31 | NUR ---
ASSUMED CARE ON 01/11/20 @ 19:15, SEATED IN THE DAY ROOM, OCCASIONALLY AMBULATING IN THE HALLS AND TO HER ROOM. COOPERATED WITH ASSESSMENT, ACKNOWLEDGED THAT SHE FEELS ANXIOUS, REPORTS THAT SHE WORRIES ABOUT HER KIDS, HER ADULT CHILDREN (4) AND ALSO ABOUT HER GRANDCHILDREN AND GREAT GRANDS. REPORTS THAT TODAY IS "SLOW" A&OX4, HRRR, S1S2 AUSCULTATED. LUNG SOUNDS CTA, ABD NX 4q AND REPORTS A BM TODAY ON 01/10. AMBULATES WITH A STEADY GAIT WITH WALKER. COMPLIANT WITH MEDICATION, TAKING ONE PO PILL AT A TIME WITH THIN WATER. IN BED AT THIS WRITING, EYES CLOSED, RESPIRATIONS EVEN AND UNLABORED, BED IN LOW POSITION AND BED ALARM SET.
--- NOTE | 2020-01-12 06:10 | NUR ---
SLEPT 9.8 HOURS OVERNIGHT
--- NOTE | 2020-01-12 09:37 | NUR ---
01/07/20 LATE ENTRY TUNDE zhao with dg and she is going to bring pt home with 11/03 supervision. She reported that she would be able to sampler pickup htis pt on Saturday or Sat after 5:30pm.
--- NOTE | 2020-01-12 09:43 | NUR ---
[facility] AND WILL MEET NURSING at the front entrance near the [address]. She also wants the haldol to be called in the agreens at [facility] and [facility] and reports she told [facility] nursing yesterday. Pt's daughter also reported that she failed to make appts as requested during our first conversation with her psych and therapist, but would do so today or tomorrow.
[2020-01-12] MEDS ORDERED: ASPIRIN325 PO (09:57)
[2020-01-12] MEDS ORDERED: MIRALAX17 GM PO (09:57)
[2020-01-12] MEDS ORDERED: HALOPERIDOL 1 MG1 MG PO (09:57)
[2020-01-12] MEDS ORDERED: MAGNESIUM400 MG PO (09:58)
--- NOTE | 2020-01-12 12:34 | NUR ---
Ambulated from table to room with walker with regular, steady gait. When she sat up she stated that she felt dizzy, radial pulse tachycardic. Also states that she feels tired and groggy. After a couple of minutes was able to stand and ambulate without difficulty with walker. Also very concerned with hearing aide batteries. Attempted to help change batteries with 2 staff members but still was not satisfied. 3rd staff member was able to change. Alert and orientated X4. Denies SI/HI. Looking forward to going home. Breath sounds clear t/o. Reg HR auscultated. Color pink with brisk capillary refill and palpable peripheral pulses, no edema noted. Independent with voiding. Active bowel sounds over large, rounded abdomen. States last BM was last night, refused Miralax this AM. VS repeated with good results. Participating in group. Daughter called and asked that pt. be ready at 1730 for discharge. Medicaid form completed via phone. Wants to make sure pt. is discharged with both hearing aides. Dr. Valladares notified of symptoms this AM (dizzy and foggy) and VS. Sitting and standing orthostatic VS per cuff ordered and done. Results given to Dr. Valladares, states he will speak to hospitalist. Pt. currently eating lunch and speaking on phone with daughter.
== END 2020-01-12 17:27 | disposition home or self-care (01) | DRG 881 ==
LOC: ER 17:19 → EROBS 20:45 → SBH 20:45
PROVIDERS: Internal Medicine; Nurse Practitioner; Nurse Practitioner Family; ADMIT Psychiatry & Neurology Psychiatry
DX: F32.9 Major depressive disorder, single episode, unspecified (principal); F01.50 Vascular dementia, unspecified severity, without behavioral disturbance, psychotic disturbance, mood disturbance, and anxiety; N17.9 Acute kidney failure, unspecified; N39.0 Urinary tract infection, site not specified; F29 Unspecified psychosis not due to a substance or known physiological condition; F22 Delusional disorders; F41.1 Generalized anxiety disorder; E11.22 Type 2 diabetes mellitus with diabetic chronic kidney disease; I12.9 Hypertensive chronic kidney disease with stage 1 through stage 4 chronic kidney disease, or unspecified chronic kidney disease; E78.5 Hyperlipidemia, unspecified; Z86.73 Personal history of transient ischemic attack (TIA), and cerebral infarction without residual deficits; Z79.84 Long term (current) use of oral hypoglycemic drugs; Z79.82 Long term (current) use of aspirin; Z79.899 Other long term (current) drug therapy; Z90.710 Acquired absence of both cervix and uterus
CPT/HCPCS: 10880

== ENCOUNTER 2020-01-23 18:20 | Inpatient (IN) | payer OTHER, MEDICARE ==
[~2020-01-23] VITALS: Ht 157.5 cm; Wt 49.9 kg
[~2020-01-23 18:20] MED LIST: ASA81BEC PO; ASPIRIN325 PO; B12INJ PO; EZALLOR SPRINKL10 MG PO; HALOPERIDOL 1 MG1 MG PO; LAMOTRIGINE250 MG PO; LISINOPRIL40 MG PO; MAGNESIUM400 MG PO; METFORMIN HCL500 M3 PO; MIRALAX17 GM PO; NORVASC5 M1 PO
[2020-01-23 18:25] VITALS: BP 160/91
[2020-01-23 18:59] LABS: ABSOLUTE NEUTROPHILS 6.6 thou/uL (1.4-8.2); BASOPHILS 0.9 % (0.0-2.0); EOSINOPHILS 1.9 % (0.0-3.0); HEMATOCRIT 39.7 % (37.0-47.0); HEMOGLOBIN 13.3 gm/dL (12.0-15.0); MCHC 33.4 g/dL (28.0-37.0); MCV 92.7 fL (80.0-100.0); MONOCYTES 9.5 % (1.0-8.0); PLATELET COUNT 331 thou/uL (150-400); POLYS 69.7 % (36.0-66.0); RBC 4.28 mil/uL (4.20-5.00); RDW 13.2 % (10.5-14.5); WBC 9.5 thou/uL (4.0-11.0)
[2020-01-23 19:07] LABS: ANION GAP 13 mmol/L (7-16); BUN 25 mg/dL (7-18); CALCIUM 9.6 mg/dL (8.5-10.1); CHLORIDE 103 mmol/L (98-107); CO2 23 mmol/L (21-32); CREATININE 1.2 mg/dL (0.6-1.0); GLUCOSE 161 mg/dL (74-106); POTASSIUM 3.7 mmol/L (3.5-5.1); SODIUM 139 mmol/L (136-145)
[2020-01-23 19:13] LABS: SALICYLATE < 2.8 mg/dL (2.8-20.0); SGOT 17 U/L (15-37); SGPT 26 U/L (30-65); TOTAL BILIRUBIN 0.4 mg/dL (0.2-1.0); TOTAL PROTEIN 8.1 g/dL (6.4-8.2)
[2020-01-23 21:20] LABS: URINE BLOOD NEGATIVE (Negative); URINE CLARITY CLEAR; URINE COLOR YELLOW; URINE GLUCOSE-RANDOM* NEGATIVE (Negative); URINE KETONES TRACE (Negative); URINE NITRITE-REFLEX NEGATIVE (Negative); URINE PROTEIN (DIPSTICK) NEGATIVE (Negative); URINE SPECIFIC GRAVITY >= 1.030 (1.005-1.035); URINE UROBILINOGEN 0.2 E.U./dl (0.2-1.0)
[2020-01-23 21:21] LABS: ICTOTEST (BILI CONFIRMATORY) Negative (Negative); URINE BILIRUBIN NEGATIVE (Negative); URINE LEUKOCYTES-REFLEX 2+ (Negative)
[2020-01-23 21:29] LABS: AMP/METHAMP Negative (Negative); BARBITURATES Negative (Negative); BENZODIAZEPINES Negative (Negative); COCAINE Negative (Negative); METHADONE Negative (Negative); OPIATES Negative (Negative); PCP Negative (Negative)
[2020-01-23 21:31] LABS: BACTERIA-REFLEX None Seen /HPF (None Seen); CASTS None Seen /LPF (None Seen); CRYSTALS None Seen /LPF (None Seen); MUCUS 0-3 Light strn/LPF (None Seen); SQUAMOUS None Seen /LPF (0-3); URIC ACID CRYSTALS 0-3 Few /LPF (None Seen); URINE RBC 0-2 Rare /HPF (0-2); URINE WBC-REFLEX 0-5 Rare /HPF (0-5)
[2020-01-23 23:15] VITALS: BP 134/96
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
[2020-01-24 07:40] VITALS: BP 156/91
--- NOTE | 2020-01-24 08:41 | NUR ---
ASSUMED CARE AT 0700 THIS MORNING. PT. UP, DRESSED AND ON THE UNIT FOR BREAKFAST. SHE ATE VERY LITTLE. SHE DID TAKE HER MORNING MEDICATIONS WHILE COMPLAINING THE ENTIRE TIME THAT SHE DOESN'T TAKE THAT MANY PILLS. SHE HAS REFUSED THE [employer] ORAL SUSPENSION AT THIS TIME BUT WILL ATTEMPT TO WORK WITH HER ON THIS ISSUE LATER THIS MORNING. WHILE HANDLING A GLASS OF WATER, IT WAS NOTED THAT HER HANDS HAS GOOD AMOUNT OF TREMORS PRESENT AND SHE HAD A DIFFICULT TIME WITH IT, EVEN SPILLING IT ON HERSELF. THE CUP COULD BE HELD SOMEWHAT STEADY IF SHE USED TWO HANDS ON THE CUP.
[2020-01-24 10:18] VITALS: BP 156/91
--- NOTE | 2020-01-24 11:30 | NUR ---
INSERTED 22 GAUGE TO LEFT FORARM DUE TO PT LOW BP 76/41 MACHINE AND 136/64 MANUAL, PULSE 72. DR. SHARMA ORDERED FOR FLUIDS. IV ATTEMPT SUCCESSFUL.
--- NOTE | 2020-01-24 13:15 | NUR ---
PT ARRIVED TO ROOM 202. RN AT THE BEDSIDE. PT STATES "I FELL AND HURT ALL OVER." ASSESSMENT DOCUMENTED. NSR ON THE MONITOR. PT HAS SKIN TEAR ON R FA. PT RESTING IN BED WITH CALL LIGHT IN REACH AND BED ALARM ACTIVATED. WILL CONTINUE TO MONITOR.
--- NOTE | 2020-01-25 08:52 | EKG ---
[facility] [place] [address] ELECTROCARDIOGRAM REPORT Name: DANNY HAYS Room #: [facility] DIS IN M.R.#: [id number] Admission: 01/23/20 Attend Phys: Iggy Valladares DO Discharge: 01/24/20 Date of : 45 Report #: [id number] THIS REPORT FOR: cc: Tra Briceno MD, Neal A. MD Lundgren,Sigifredo Schmitt MD [facility] ~ THIS REPORT FOR: //name// [facility] ED Test Date: 2020-01-23 Test Time: 19:15:20 Pat Name: DANNY HAYS Department: Room: [facility] Gender: F Lathing Supervisor: EREN : 1945 Requested By: Quinn Rosales Order Number: [id number] MD: Sigifredo Aviles Measurements Intervals [place] Rate: 87 P: 43 MT: 176 QRS: 20 QRSD: 73 T: 70 QT: 356 QTc: 429 Interpretive Statements Sinus rhythm Minimal, diffuse ST elevation, probably early repolarization Compared to ECG 01/01/2020 18:21:23 No significant change was found Electronically Signed On 01-25-2020 8:50:08 CDT by Sigifredo Aviles [email or web address] <ELECTRONICALLY SIGNED> By: Sigifredo Aviles MD, [facility] 01/25/2050 14 14 Sigifredo Aviles MD, [facility] /EPI
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
== END 2020-01-24 13:27 | disposition short-term general hospital (02) | DRG 884 ==
LOC: ER 18:20 → SBH 23:40
PROVIDERS: Emergency Medicine; ADMIT Psychiatry & Neurology Psychiatry; ATTEND Psychiatry & Neurology Psychiatry
DX: F01.50 Vascular dementia, unspecified severity, without behavioral disturbance, psychotic disturbance, mood disturbance, and anxiety (principal); N18.9 Chronic kidney disease, unspecified; N39.0 Urinary tract infection, site not specified; F31.9 Bipolar disorder, unspecified; E11.9 Type 2 diabetes mellitus without complications; E86.0 Dehydration; R41.0 Disorientation, unspecified; E78.5 Hyperlipidemia, unspecified; I12.9 Hypertensive chronic kidney disease with stage 1 through stage 4 chronic kidney disease, or unspecified chronic kidney disease; I95.9 Hypotension, unspecified; F41.1 Generalized anxiety disorder; Z79.82 Long term (current) use of aspirin; Z79.84 Long term (current) use of oral hypoglycemic drugs; Z86.73 Personal history of transient ischemic attack (TIA), and cerebral infarction without residual deficits; Z79.899 Other long term (current) drug therapy; Z88.5 Allergy status to narcotic agent
CPT/HCPCS: 10880

== ENCOUNTER 2020-01-24 12:30 | Inpatient (IN) | payer OTHER, MEDICARE ==
[2020-01-24 13:15] VITALS: BP 98/43
[2020-01-24 15:28] LABS: ABSOLUTE NEUTROPHILS 9.2 thou/uL (1.4-8.2); BASOPHILS 0.3 % (0.0-2.0); EOSINOPHILS 0.2 % (0.0-3.0); HEMATOCRIT 35.8 % (37.0-47.0); HEMOGLOBIN 12.2 gm/dL (12.0-15.0); LYMPHOCYTES 10.1 % (24.0-44.0); MCH 31.4 pg (26.0-34.0); MCV 92.2 fL (80.0-100.0); PLATELET COUNT 281 thou/uL (150-400); POLYS 81.4 % (36.0-66.0); RBC 3.89 mil/uL (4.20-5.00); RDW 13.1 % (10.5-14.5); WBC 11.3 thou/uL (4.0-11.0)
[2020-01-24 15:43] LABS: ALBUMIN 3.5 g/dL (3.4-5.0); CALCIUM 8.7 mg/dL (8.5-10.1); CREATININE 1.4 mg/dL (0.6-1.0); MAGNESIUM 1.3 mg/dL (1.8-2.4); POTASSIUM 4.1 mmol/L (3.5-5.1); TOTAL BILIRUBIN 0.4 mg/dL (0.2-1.0); TOTAL PROTEIN 7.2 g/dL (6.4-8.2)
[2020-01-24 16:10] VITALS: BP 119/52
[2020-01-24 19:20] VITALS: BP 134/63
--- NOTE | 2020-01-25 03:29 | NUR ---
ASSESSMENT: PT REMAIN ALERT AND ORIENT TIMES THREE. PT VERY DROWSY, EASY TO AROUSE. SB PER MONITOR. VSS, AFBERILE. CURRENTLY DENIES PAIN IN HER BACK. REMAIN SAFE. SLOW PROGRESS TOWARDS DC GOALS. WILL CONTINUE.
[2020-01-25 04:15] VITALS: BP 142/57
[2020-01-25 07:30] VITALS: BP 147/64; BP 159/70
--- NOTE | 2020-01-25 09:55 | NUR ---
chart review. cm tried calling pt room x 2 and no answer. pt on [facility] in december and back on [facility] in january and dc to acute hospital. cm called daughter carri via phone call intro to cm, transition of care and dcp. " have little time to talk, she lives with me, 2 steps to enter then no stairs. manage her medication for her. no walker since last january 2019 and not needed it. no hh or rehab in mo. just so you know, the plan was/is to dc her to [facility] from [facility]. [place] "/ carri. will cont following as needed for dc.
[2020-01-25 11:25] VITALS: BP 146/67
[2020-01-25 14:24] LABS: HEMATOCRIT 36.2 % (37.0-47.0); MCH 30.8 pg (26.0-34.0); MCHC 33.2 g/dL (28.0-37.0); MCV 92.8 fL (80.0-100.0); RBC 3.9 mil/uL (4.20-5.00); RDW 13.4 % (10.5-14.5); WBC 6.7 thou/uL (4.0-11.0)
[2020-01-25 14:38] LABS: POTASSIUM 3.7 mmol/L (3.5-5.1)
[2020-01-25 16:04] LABS: URINE BILIRUBIN NEGATIVE (Negative); URINE BLOOD NEGATIVE (Negative); URINE CLARITY CLEAR; URINE COLOR YELLOW; URINE GLUCOSE-RANDOM* NEGATIVE (Negative); URINE KETONES NEGATIVE (Negative); URINE LEUKOCYTES 1+ (Negative); URINE NITRITE NEGATIVE (Negative); URINE PROTEIN (DIPSTICK) NEGATIVE (Negative); URINE SPECIFIC GRAVITY 1.015 (1.005-1.035); URINE UROBILINOGEN 0.2 E.U./dl (0.2-1.0)
[2020-01-25 16:25] VITALS: BP 167/61
[2020-01-25 16:46] LABS: SQUAMOUS 0-3 Few /LPF (0-3); URINE WBC 6-15 Few /HPF (0-5)
[2020-01-25 16:47] LABS: BACTERIA 1-9 Few /HPF (None Seen); CASTS None Seen /LPF (None Seen); CRYSTALS None Seen /LPF (None Seen); URINE RBC None Seen /HPF (0-2)
--- NOTE | 2020-01-25 16:48 | NUR ---
PT CARE ASSUMED APPROX 0700. ASSESSMENTS CHARTED. PT DENIES SOA. REPORTS NECK PAIN. MRI COMPLETED. NO ACUTE FINDINGS. MANAGING PAIN MEDS ALLOW. VSS. PT UP TO CHAIR WITH PT BRIEFLY. TURNING Q2HRS AND PRN. PT TOLERATING POC. POOR APPETITE AND POOR MOTIVATION TO MOBILIZE. PT EDUCATED. COGNITIVE IMPROVEMENT NOTED THIS SHIFT. NO DISTRESS NOTED.
--- NOTE | 2020-01-25 16:50 | NUR ---
PT CARE ASSUMED APPROX 0700. ASSESSMENT CHARTED. PT DENIES PAIN AND SOA. VSS. UP WITH MIN ASSIST. TOLERATING POC. NO DISTRESS NOTED.
[2020-01-25 19:17] VITALS: BP 158/59
[2020-01-25 23:14] VITALS: BP 170/66
--- NOTE | 2020-01-26 04:32 | NUR ---
PATIENTS CARES WERE ASSUMED AT SHIFT CHANGE. PATIENT WAS ASSESSED AND MEDS WERE PASSED. PATIENT IS ABLE TO AMBULATE TO THE BATHROOM WITH A GAIT BELT AND A WALKER. THIS PATIENT IS A PLEASENT LADY. SHE CALLS APPROATELY TO GET HER NEEDS MEET. HOURLY ROUNDS WERE DONE. THE BED IS IN A LOW AND LOCKED POSITION.
[2020-01-26 04:56] VITALS: BP 172/76
[2020-01-26 05:22] LABS: HEMATOCRIT 32.6 % (37.0-47.0); HEMOGLOBIN 11.2 gm/dL (12.0-15.0); MCH 31.4 pg (26.0-34.0); MCHC 34.2 g/dL (28.0-37.0); MCV 91.8 fL (80.0-100.0); RBC 3.55 mil/uL (4.20-5.00); RDW 13.2 % (10.5-14.5); WBC 6.8 thou/uL (4.0-11.0)
[2020-01-26 05:52] LABS: CALCIUM 8.6 mg/dL (8.5-10.1); CREATININE 0.7 mg/dL (0.6-1.0); POTASSIUM 3.1 mmol/L (3.5-5.1)
[2020-01-26 07:14] VITALS: BP 182/74
--- NOTE | 2020-01-26 13:27 | NUR ---
I was asked to assess Tatiana to see if see would meet criteria for SBHU. Tatiana is very tearful, She rates her depression at 10/10. She states she is anxious. She shared with me the of her . She ruminiated "I did not kill him." She is scared of the unknown. She knows that she needs to live somewhere other than with her daughter, and this is scaring her also. Tatiana does meet criteria for SBH. I will consult Dr. Valladares.
[2020-01-26] MEDS ORDERED: LISINOPRIL10 MG PO (14:37)
[2020-01-26] MEDS ORDERED: GLUCOPHAGE500 MG PO (14:38)
[2020-01-26] MEDS ORDERED: ASPIRIN325 PO (14:38)
[2020-01-26] MEDS ORDERED: LIPITOR10 MG PO (14:38)
--- NOTE | 2020-01-26 15:49 | NUR ---
PT CARE ASSUMED APPROX 0700. ASSESSMENTS CHARTED. PT DENIES PAIN AND SOA. BP ELEVATED. BP MEDS RESTARTED. WILL REASSESS. HR SB-40S WHILE PT ASLEEP. WHEN PT IS AWAKE SHE DENIES SYMPTOMS OF BRADYCARDIA. UP WITH MIN ASSIST TO BSC. PT TOLERATING POC. DISCHARGING BACK TO THE [facility] UNIT THIS SHIFT. REPORT CALLED TO THE [facility] NURSE. SHE DENIED QUESTIONS OR CONCERNS REGARDING PT'S POC OR TRANFER. PT'S DAUGHTER/DPRADHA POST WAS GIVEN CLINICAL UPDATE AND IS AWARE OF TRANSFER THIS SHIFT. NO DISTRESS NOTED. IV OUT. TELE OFF.
[2020-01-26 16:20] VITALS: BP 170/83
--- NOTE | 2020-01-26 16:28 | NUR ---
BP REMAINS SLIGHTLY ELEVATED BUT IS TRENDING DOWN. PT IN ROUTE TO SBH AT THIS TIME.
== END 2020-01-26 16:29 | DRG 312 ==
LOC: TBA 12:30 → 2N 13:47
PROVIDERS: ADMIT Internal Medicine; ATTEND Family Medicine
DX: I95.1 Orthostatic hypotension (principal); N17.0 Acute kidney failure with tubular necrosis; E86.0 Dehydration; N30.80 Other cystitis without hematuria; B95.1 Streptococcus, group B, as the cause of diseases classified elsewhere; F01.50 Vascular dementia, unspecified severity, without behavioral disturbance, psychotic disturbance, mood disturbance, and anxiety; F32.9 Major depressive disorder, single episode, unspecified; Z86.73 Personal history of transient ischemic attack (TIA), and cerebral infarction without residual deficits; Z88.5 Allergy status to narcotic agent; Z79.899 Other long term (current) drug therapy; Z90.710 Acquired absence of both cervix and uterus; N18.9 Chronic kidney disease, unspecified; I12.9 Hypertensive chronic kidney disease with stage 1 through stage 4 chronic kidney disease, or unspecified chronic kidney disease; E11.22 Type 2 diabetes mellitus with diabetic chronic kidney disease
CPT/HCPCS: 10081

== ENCOUNTER 2020-01-26 17:52 | Inpatient (IN) | payer OTHER, MEDICARE ==
[~2020-01-26] VITALS: Ht 157.5 cm; Wt 49.9 kg
[~2020-01-26 17:52] MED LIST changes: +GLUCOPHAGE500 MG PO; +LIPITOR10 MG PO; +LISINOPRIL10 MG PO
--- NOTE | 2020-01-26 19:44 | NUR ---
ADMIT NOTE-PT ARRIVED TO FLOOR AT APPROX 1630-ARRIVES FROM 2ND FLOOR REPORT GIVEN TO BENOIT RN-PT OBSERVED TO BE BROUGHT TO FLOOR ACCOMPNIED BY 2ND FLOOR NURSING STAFF VIA WC. COOPERATIVE AND PLEASANT UPON ARRIVAL TO UNIT. VS 98.2-BP168/33-N-67-P71-02 SAT 94 PERCENT ON RA. BLOOD SUGAR CHECKED AND IS 174. 5 FOOT 2 INCHES TALL-110 LBS ON ADMIT. ORIENTED TO ROOM AND UNIT-CONSENTS OBTAINED AND UNIT EDUCATION/PROGRAM FOLDER PROVIDED. FALLS RISK AGREEMENT SIGNED AND PT REPORTS UNDERSTANDING OF NEED TO ASK FOR HELP. PERSONAL BELONGINGS INVENTORIED AND SECURED. SUPPER PROVIDED [id number].
[2020-01-26 20:00] VITALS: BP 170/83
--- NOTE | 2020-01-27 00:55 | NUR ---
PATIENT HAS BEEN SLEEPING SINCE I CAME ON THIS SHIFT AT 1900. PATIENT DID AWAKEN FOR ASSESSMENT. PATIENT'S VSS AT 139/51 P93 R18 T98.4 02%96. ABDOMEN IS SOFT WITH POSITIVE BOWEL SOUNDS. LBM 01/26/20. PATIENT IS PLESANT AND COOPERATIVE. A/0X1-2. SHE IS VERY [place]. DAUGHTER, SEJAL SAHA WILL BRING HEARING AID BATTERIES IN AM. PATIENT DID NOT AMBULATE YET FOR ME. BUT SHE DOES AMBULATE WITH WALKER. HER LUNGS WERE CTA DIMINISHED IN THE BASES. HEART RATE REGULAR. RESPIRATIONS EVEN AND UNLABORED. NEW ORDERS OBTAINED FROM DR LOCO FOR MAGNESIUM AND BMP LABS THIS MORNING. PATIENT'S LAST MAGNESIUM LEVEL 1.3 ON 01/24/20 WHEN SHE WAS MOVED TO CCU. PATIENT WEARS EYEGLASSES AND ARE ON HER BEDSIDE TABLE. PATIENT DENIES PAIN. SHE DOES HAVE A DRESSING ON WRIST FROM SKIN TEAR BEFORE ADMISSION. UNKNOWN HOW SHE GOT IT. PATIENT STATES TONIGHT THAT SHE IS VERY TIRED AND SHE JUST WANTS TO SLEEP. PATIENT HAD SUPPER ON UNIT WITH OTHERS AT 1700. BED IN LOW POSITION. BED ALARM ON. ROUTINE ROUNDING TO ASSESS FOR STATUS AND SAFETY OF PATIENT. WILL CONTINUE TO MONITOR.
[2020-01-27 06:00] LABS: CALCIUM 8.8 mg/dL (8.5-10.1); CREATININE 0.9 mg/dL (0.6-1.0); MAGNESIUM 1.3 mg/dL (1.8-2.4); POTASSIUM 3.5 mmol/L (3.5-5.1)
[2020-01-27 07:40] VITALS: BP 153/88
--- NOTE | 2020-01-27 09:17 | NUR ---
SW reviewed chart - pt is well known from previous inpt. Sw called dght Keya and confimred that pt cannot go home and she will be medicaid pending at a memory care. TUNDE completed the intake assessment and TP.
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
--- NOTE | 2020-01-27 16:21 | NUR ---
0700 ASSUMED CARE OF PATIENT, PATIENT IN ROOM AT THAT TIME. 0745 PATIENT IN DAYROOM SITTING AT TABLE. PATIENT EATING BREAKFAST, DENIES NEEDS. PATIENT TAKES MEDICATION WHOLE AFTER STATING"I AM NOT TAKING THOSE". PATIENT WHILE REDUSING TO TAKE MEDS, STARTS TAKING THEM ONE AT A TIME. PATIENT IS PARANOID AND ASKING QUESTIONS ABOUT EVERYTHING ASKED OF HER. PATIENT SUSPICIOUS OF EVERYONE. PATIENT IS CALM AND REDIRECTABLE. PATIENT AMB WITH WALKER WITH STEADY GAIT. PATIENT CONTINUES TO SIT IN DAYROOM.
--- NOTE | 2020-01-27 19:18 | NUR ---
Care of patient assumed at 1915. Patient is sitting in day room , but asks that we go to assigned room to speak. Patient is tearful and dispondent. Relates belief that she is in trouble and is going to be punished by hospital staff. A/O x 3. HS, LS, BS WNL. Compliant with meds.
[2020-01-27 19:30] VITALS: BP 151/69
[2020-01-28 06:23] LABS: ABSOLUTE NEUTROPHILS 3.6 thou/uL (1.4-8.2); BASOPHILS 0.6 % (0.0-2.0); EOSINOPHILS 3.6 % (0.0-3.0); HEMATOCRIT 34.6 % (37.0-47.0); HEMOGLOBIN 11.6 gm/dL (12.0-15.0); LYMPHOCYTES 26.1 % (24.0-44.0); MCH 30.9 pg (26.0-34.0); MCHC 33.6 g/dL (28.0-37.0); MCV 91.8 fL (80.0-100.0); MONOCYTES 9.9 % (1.0-8.0); PLATELET COUNT 245 thou/uL (150-400); POLYS 59.8 % (36.0-66.0); RBC 3.77 mil/uL (4.20-5.00); RDW 13.2 % (10.5-14.5)
[2020-01-28 06:33] LABS: CALCIUM 9.2 mg/dL (8.5-10.1); CREATININE 0.8 mg/dL (0.6-1.0); MAGNESIUM 1.5 mg/dL (1.8-2.4); POTASSIUM 3.7 mmol/L (3.5-5.1)
[2020-01-28 07:15] VITALS: BP 146/81
--- NOTE | 2020-01-28 12:16 | NUR ---
TUNDE sent referrals to [facility] and [facility] and [facility]. And pt signed consent for medicaid application, and TUNDE sent this back to [facility].
--- NOTE | 2020-01-28 12:17 | NUR ---
Sw also sent referral to [facility].
[2020-01-28 19:18] VITALS: BP 130/60
--- NOTE | 2020-01-28 19:18 | NUR ---
Care of patient assumed at 1915. Patient is laying in bed. Calm and cooeprative with assessment. A/O x 4. Denies SI/HI. Reports 8/10 back pain ongoing for years. Less delusional tonight. Remembers conversation with Dr. Mueller earlier, which aided in orientation. States he felt nauseous earlier, but it went away. Compliant with HS meds. Received APAP 65omg for back pain. 20 minutes later she was sleeping.
--- NOTE | 2020-01-29 06:53 | NUR ---
Patient has old skin tear to right forearm that was present on original admission which was 01/24/20. Order obtained to cleanse skin tear with normal saline, pat dry, cover with bordered gauze Saturday, Saturday and Saturday. Dressing completed this AM. Granulation present to wound bed. No redness, drainage or swelling observed. Green bruising present to feroz wound.
[2020-01-29 08:35] VITALS: BP 164/79
--- NOTE | 2020-01-29 11:42 | NUR ---
Tatiana has become increasingly paranoid about the chair and bed alarms this morning. She believes that staff are mad at her and "come after her" when she stands up and sets them off. She has been pacing the hallways and disoriented to situation. When asked to sit down she complies but refuses to have a chair alarm placed under her. Back to pacing the halls at this time.
--- NOTE | 2020-01-29 13:01 | NUR ---
It was reported in treatment team that pt can d/c on Saturday. TUNDE called Keya [phone] and left a VM reporting that [facility] would be the best option and that d/c will be Saturday. TUNDE then called Janeth with [facility] and reported this. They are still willing to accept this pt on Saturday. Pt will need a COVID 19 test completed on Saturday, DA 124 C too. Tunde provided Keya and Janeth with each others contact info so they can go over the details of the admission.
--- NOTE | 2020-01-29 15:10 | NUR ---
pT WAS IN DAY ROOM WAITING FOR AM MEAL. pT WAS VERY IRRITABLE AND DID NOT WANT TO ANSWER ANY QUESTIONS REGARDING HOW SHE FELTOR WHAT HER GOL FOR THE DAY WAS. LUNGS WERE CLEAR X 2 ,PEDAL PULSE STRONG AND REGULAR. HEART RATE STRONG AND REGULAR. MEDICATIONS GIVEN AND TAKEN WHOLE. DANNY REMAINS VERY PARANOID, BUT BUT WHEN ANSWERS ARE GIVEN SHE SAID .WHY ARE YOU TELLING ME THAT FOR. sTILL APPEARS NEGATIVE AND AND CONFUSED. DENIES SI,OR HI. sTAFF CONTINUE TO MONITOR FOR SAFETY.
[2020-01-29 19:37] VITALS: BP 158/71
--- NOTE | 2020-01-30 03:59 | NUR ---
PT WAS IN HER BED, SLEEPING AT TIME OF ASSESSMENT. PT SEEMED PARAONID. KEPT ASKING WHO I WAS AND WHAT I WAS GOING TO DO TO HER. I REINFORCED THAT I WAS PT'S NURSE AND WANTED TO DO LISTEN TO HER HEART AND DO ASSESSMENT. PT WAS COOPERATIVE WITH ASSESSMENT. NURSING INFORMED PT THAT MEDS WILL BE BROUGHT IN A LITTLE LATER AFTER NURSING HAVE SEEN OTHER PTS. PT CAME OUT SHORTLY LOOKING FOR NURSING TO DEMAND HER MEDS. PT TOOK MEDS WHOLE. TREMOR NOTED. PT IS A FALL RISK. AMBULATES WITH WALKER. PT CURRENTLY SLEEPING IN HER ROOM. WILL CONTINUE TO MONITOR.
--- NOTE | 2020-01-30 08:00 | NUR ---
PT ENCOURAGED TO GO TO DINING ROOM THIS AM. PT STATED SHE DIDN'T WANT TO GO INTO THE DINING AREA, NO REASON WHY. PT UP WITH WALKER. PT DENIES PAIN AT THIS TIME.
[2020-01-30 08:27] VITALS: BP 159/81
[2020-01-30 09:00] VITALS: BP 159/81
--- NOTE | 2020-01-30 09:00 | NUR ---
PT IN BED AT THIS TIME. UNABLE TO GIVE AM MEDS.
--- NOTE | 2020-01-30 12:40 | NUR ---
PT AWAKE AT THIS TIME EATING LUNCH IN HER ROOM. PT STATED SHE COULDN'T EAT ANYMORE. PT TOOK AM MEDS. PT STILL DIDN'T WANT TO EAT IN DINING ROOM. PT TOLD SUSTAINABILITY CONSULTANT THAT SHE DIDN'T WANT HER TO CLEAN HER ROOM AND DON'T SHUT THE DOOR. PT DOESN'T WANT HER DOOR SHUT ALL THE WAY.
--- NOTE | 2020-01-30 14:54 | NUR ---
GAVE PT TYLENOL. PT REALLY CONFUSED. PT WANTING BED ALARM OFF AND WANTING TO MAKE SURE THE ALARM IS OFF. PT WALKED AROUND THE BED AND SAID ITS IS SET, THE LIGHTS ARE OFF. PT WANTING TO STAY WITH HER THEN SHE SAYS GO. PT REALLY CONFUSED. PT TALKS WITH A WHINING VOICE.
--- NOTE | 2020-01-30 18:43 | NUR ---
PT CHANGED PANTS AND SHIRT WITHOUT ANY HELP. PT ASKING TO HELP HER, NOT SURE HOW BRIEF IS USED. ASSISTED PT WITH BRIEF AND PANTS.
[2020-01-30 19:35] VITALS: BP 132/56
--- NOTE | 2020-01-30 23:52 | NUR ---
Assumed care on 01/30/20 @ 19:15, in bed awake, alert and oriented x 2-3. Quite hard of hearing and this appears to add to patient's confusion. Cooperated with assessment, HRRR, Lung sounds auscultated clear bilat. ABD N x 4 q, reports bm today, large firm formed bm. Anxious regarding peer's behavior at night, being awake and ambulating from bed to bathroom. Patient in bed at this writing, eyes closed, respirations even and unlabored. Will continue to monitor q 12 minutes for patient safety.
[2020-01-31 01:28] VITALS: BP 132/56
--- NOTE | 2020-01-31 06:10 | NUR ---
SLEPT WELL OVERNIGHT FOR A TOTAL OF 7.6 HOURS SLEEP.
[2020-01-31 08:50] VITALS: BP 150/85
--- NOTE | 2020-01-31 10:00 | NUR ---
Assumed care 0700. Very paranoid about staff coming in her room. She adamantly does not want her meds. Nurse will retry later. She is ordering nurse and staff out of her room.
--- NOTE | 2020-01-31 16:50 | NUR ---
Pt unable to participate in group due to cognitive deficit.
--- NOTE | 2020-01-31 18:11 | NUR ---
rEFUSED am MEDS; SPENT MOST OF TIME IN BED OUT FOR DINNER. Was tearful after dinner. Did not want to be left alone in her room. Encouraged pt. to come out into the dayroom to be closer to staff, pt. declined. She did not want to sit on chair alarm out in dayroom.
[2020-01-31 19:20] VITALS: BP 125/53
--- NOTE | 2020-02-01 01:31 | NUR ---
Assumed care on 01/31/20 @ 19:15, seated in the day room at a table by herself. Tearful and confused when spoken to. Interrupts care of roommate to demand assistance, then when nurse asks what help she needs, denies needs and demands staff leave the room. Follows up by saying, "are you comming back?" A&O x 3 Oriented to person, own , president and Month, cannot state date or hospital. Affect tearful, needy with anxiety noted. Reports back pain, and hip pain of 5/10, Tylenol 650 given for pain, follow up noted to be sleeping. HRRR, Lungs CTA bilat, ABD normoactive bowel sounds over a round soft abdomen. Reports had a BM today, soft and formed. Denies diarrhea. Refused coalace. Ambulates with walker with a steady gait noted. Continent of bladder. L arm dressing C/D/I. In bed at this writing, eyes closed, respirations even and unlabored, bed in low position, bed alarm set, sharon continue to monitor q 12 minute rounding for patient safety.
[2020-02-01 08:00] VITALS: BP 156/81
--- NOTE | 2020-02-01 17:19 | NUR ---
TUNDE called and spoke with Keya to confirm the d/.c for tomorrow. [facility] is satisfied with this outcome. D/C is expected for 11 am but still pending a confirmtaion call in the AM.
--- NOTE | 2020-02-01 17:33 | NUR ---
Assumed care at 0700 Secluded self to room except for meals. Not involved in groups. In afternoon became tearful delusional that someone was taking her things, wanted to keep the door to room closed thus locked from the outside. She was instructed not to close the door which she did at least once immpeeding staff from quick entry for checking on her. Door is proped part way open. Tearful missing her family.
--- NOTE | 2020-02-01 19:27 | NUR ---
Care of patient assumed at 191. Patient sitting in room on her bed reading the news paper. Patient is calm and cooperative with assessment. A/O x 4. Denies SI/HI. Reports back pain 12/26. HS, LS, BS all WNL for patient. Relates worry that she will be placed at a NH with COVID outbreak. Compliant with meds. Becomes a little paranoid when room mate enters. Later is noted to be commiscerating with room mate about her wories as states above.
[2020-02-01 20:18] VITALS: BP 109/56
[2020-02-02 08:28] VITALS: BP 156/71
[2020-02-02] MEDS ORDERED: TYLENOL325 MG PO (10:09)
[2020-02-02] MEDS ORDERED: LAMICTAL XR50 MG PO (10:09)
[2020-02-02] MEDS ORDERED: LAMICTAL XR200 MG PO (10:10)
[2020-02-02] MEDS ORDERED: RISPERIDONE 00.25 MG PO (10:10)
[2020-02-02] MEDS ORDERED: REMERON 30 MG T30 M1 PO (10:10)
[2020-02-02] MEDS ORDERED: COLACE100 MG PO (10:11)
[2020-02-02] MEDS ORDERED: PEPCID20 MG PO (10:12)
[2020-02-02] MEDS ORDERED: MAGNESIUM400 MG PO (10:14)
--- NOTE | 2020-02-02 11:52 | NUR ---
TUNDE made packet and left in on the chart. T[facility]DE [facility] Tunde confirmed the moss picker time for 11am and reported this to nursing.
--- NOTE | 2020-02-02 12:21 | NUR ---
Up ambulating in hallways with regular, steady gait. Alert and orientated to person and place but not to time. Denies SI/HI. Breath sounds clear t/o, bilaterally equal. Reg HR auscultated. Color pink with brisk capillary refill and palpable peripheral pulses. No edema noted. Independent with voiding. Active bowel sounds over soft, rounded abdomen. Wound per R forearm cleaned with saline and redressed, healing. Report called to [facility]. Discharge discussed with daughter Keya. Discharge instructions given to Tatiana, refusing to sign. 1120 Discharged per van transport in . No s/o distress. Talking with daughter just prior to discharge via phone.
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
== END 2020-02-02 11:20 | DRG 57 ==
LOC: SBH
PROVIDERS: Nurse Practitioner; ADMIT Psychiatry & Neurology Psychiatry; ATTEND Psychiatry & Neurology Psychiatry
DX: G30.9 Alzheimer's disease, unspecified (principal); F02.81 Dementia in other diseases classified elsewhere, unspecified severity, with behavioral disturbance; N18.9 Chronic kidney disease, unspecified; F01.51 Vascular dementia, unspecified severity, with behavioral disturbance; E83.42 Hypomagnesemia; N30.90 Cystitis, unspecified without hematuria; G20 Parkinson's disease; I12.9 Hypertensive chronic kidney disease with stage 1 through stage 4 chronic kidney disease, or unspecified chronic kidney disease; E11.22 Type 2 diabetes mellitus with diabetic chronic kidney disease; E86.0 Dehydration; F31.9 Bipolar disorder, unspecified; Z66 Do not resuscitate; F22 Delusional disorders; E78.5 Hyperlipidemia, unspecified; F41.9 Anxiety disorder, unspecified; Z86.73 Personal history of transient ischemic attack (TIA), and cerebral infarction without residual deficits; Z79.84 Long term (current) use of oral hypoglycemic drugs; Z79.899 Other long term (current) drug therapy; Z90.710 Acquired absence of both cervix and uterus; Z03.818 Encounter for observation for suspected exposure to other biological agents ruled out
CPT/HCPCS: 10880

== ENCOUNTER 2021-06-14 11:22 | Inpatient (IN) | payer OTHER ==
[~2021-06-14] VITALS: Ht 157.5 cm; Wt 55.9 kg
--- NOTE | ~2021-06-14 | D ---
[facility] [place] [address] DISCHARGE SUMMARY Name: DANNY HAYS Room #: 523B-B DIS IN M.R.#: [id number] Admission: 06/14/21 Attend Phys: Iggy Valladares DO Discharge: 06/21/21 Date of : 45 Report #: [id number] THIS REPORT FOR: cc: Tra Briceno MD, Neal A. MD Kerstein, Andrew H. DO ~ DATE OF SERVICE: 06/21/2021 INPATIENT PSYCHIATRIC DISCHARGE SUMMARY ATTENDING PSYCHIATRIST: Iggy Valladares DO SOFT TILE SETTER: Nicolas Azul M.D. DISCHARGE DIAGNOSES: Major neurocognitive disorder, unspecified etiology with behavioral disturbance. Comorbidities include unspecified psychosis, likely due to dementia. ADDITIONAL DIAGNOSES: Include failure to thrive. Medical comorbidities by the hospitalist, acute kidney injury, anorexia, hypertension, diabetes mellitus type 2, history of cerebrovascular accident. DISCHARGE DISPOSITION: The patient is discharging to [facility]. She also will get hospice services from [facility]. DISCHARGE INSTRUCTIONS: The patient's activity level is up with assist. She is to begin a regular diet with Glucerna shake with meals as supplement. The patient requires 24-hour assistance and supervision. LABORATORY DATA: Significant laboratories this admission, last CBC on 06/20 white count 7.0, H and H 12.0 and 35.0, platelet count 229. Chemistry from 06/20, sodium 143, potassium 3.3, chloride 106, bicarbonate 28, anion gap 9, BUN 16, creatinine 1.0, estimated GFR 54, calcium 9.4, magnesium low at 1.6, B12 417, vitamin D low at 10.5, folate 12.3. TSH 0.248. DISCHARGE MEDICATIONS: Lisinopril 10 mg oral daily for hypertension, aspirin 325 mg oral daily for hypertension, metformin 500 mg oral twice daily with meals for diabetes mellitus, lamotrigine XR 250 mg oral daily, docusate sodium 100 mg oral twice daily, magnesium oxide 400 mg 3 times a day for supplementation, olanzapine is 2.5 mg oral daily at 11:30. I also ordered an olanzapine SolTab 5 mg q. 6 hours p.r.n. for agitation or psychosis. Also, MiraLax 17 grams oral daily dissolved in 8 ounces of water for bowel motility. REASON FOR ADMISSION: Back on the or so may, this 75-year-old female sent out from nursing facility. She has been with this before about 2 years ago, had a diagnosis of dementia. This time, she had an 8-month history of believing people that are cremated in the group home, [address] [address] DISCHARGE SUMMARY Name: DANNY HAYS Room #: 523B-B [facility] IN M.R.#: [id number] Admission: 06/14/21 Attend Phys: Iggy Valladares DO Discharge: 06/21/21 Date of : 45 Report #: [id number] screaming, believes her son had been killed. HOSPITAL COURSE: The patient was admitted to Geriatric Psychiatry Unit. We had some initial success treating her with olanzapine. She then had decreased oral intake, decreased activity, leading to acute kidney injury with a creatinine of 2.5. She required 2 liters of normal saline infused over Saturday and Saturday to recover her kidney function. When we reintroduced in the antipsychotic, we went with a single daily dose of olanzapine. I do think the patient is appropriate for hospice at this time given her intake has remained unreliable and this is certainly a fragile situation. This was discussed with her daughter, Keya, who understands the situation. At the day of discharge, the patient was redirectable, not suicidal or homicidal, felt to be ready for step-down. PHYSICAL EXAMINATION: VITAL SIGNS: On the day of discharge, temperature 36.0, pulse 113, respirations 18, BP 142/65, O2 sat 100%. MUSCULOSKELETAL: Gait not tested. Seated in a Ericka chair, glasses on. MENTAL STATUS EXAMINATION: A well-developed, ill-appearing female who is apparently stated age. Attention limited. Concentration limited. Speech soft, normal rate. Thought process linear and goal directed with simple things. Thought content focused somewhat on discharge, somewhat disorganized. Denies suicidal or homicidal ideation, auditory or visual type hallucinations. Memory not formally tested, known to be impaired. Insight and judgment were quite limited for both. Fund of knowledge diminished. Prognosis for this patient is guarded given her age of 75, multiple morbidities and having neurodegenerative disorder. By: 02 Iggy Valladares, DO /nt
[~2021-06-14 11:22] MED LIST changes: +COLACE100 MG PO; +LAMICTAL XR200 MG PO; +LAMICTAL XR50 MG PO; +PEPCID20 MG PO; +REMERON 30 MG T30 M1 PO; +RISPERIDONE 00.25 MG PO; +TYLENOL325 MG PO
[2021-06-14] MEDS ORDERED: LORAZEPAM 0.50.5 MG PO (16:49)
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
[2021-06-15 06:45] LABS: CHOLESTEROL 212 mg/dL (<200); HDL CHOLESTEROL 35 mg/dL (>40); LDL CHOLESTEROL 148 mg/dL (<100); TC:HDL 6.1 Ratio (Not establshd); TRIGLYCERIDE 147 mg/dL (<150); VLDL 29 mg/dL (<40)
[2021-06-15 06:47] LABS: SERUM ASSESSMENT Clear
[2021-06-15 10:14] VITALS: BP 147/77
[2021-06-15 10:21] VITALS: BP 147/77
--- NOTE | 2021-06-15 14:02 | NUR ---
Assumed care from overnight shift this am. Client was in [facility] in activity area, sitting in resting position. Client shook her head when asked what about orientation question, stating that she did not know where she was, but that she was an leandro in [facility] and that it did not matter to her. Client presented A&O x 0, not even stating year or date, and would answer that her name was "Leandro" when asked or prompted. Client denied hi and si, stating that she was already and in heaven, asking "why would I do that" when asked. Client denied any depression and anxiety, once again shaking head, and stating that she was in heaven. Client did let nursing assess bowel sounds, which presented normal. Client had to be prompted for lung sounds several times, as client voiced that she could not get up. Upon observation, client did not have any significant atrophy or edema that would prevent movement, though nursing did assist client into more comfortable position and assessed lung sounds, which presented clear. Client was repositioned in [facility] after this, and was covered with an extra blanket as she voiced she was cold. During morning shift, client initially refused medication, stating that she "couldn't take them" and stated that she didn't want to. Nursing provided pt education on medication as pt has significant health hx of high bp, hyperlipidema, CVA x 3, diabetes, and mental illness. Client voiced that she was an leandro and that she did not have any illnesses. Client eventually took medication crushed in apple sauce with prompting. After assessment, client's DPOA was called, and cpde status was confirmed with DPOA. Per DPOA, client is DNR. DPOA stated that she would email this to Ester Morelos, community organization worker. Daughter is Keya Dubon [phone], and another DPOA is Vikram Hou [phone]. Keya verified mother's hx, and added additionally that her mother was sensitive to benzodiazepines and cephalosporins, needed less doses as they sedated her just like opiods did. Nursing added this as drug sensitivity in her chart per DPOA request. DPOA was then transferred to Dr. Valladares's as she wanted to clarify family process and involvement. DPOA was told to leave a message as Dr. Valladares as Dr. Valladares was doing rounds at this time. DPOA agreed. Further rounding was done on Tatiana at this time. Tatiana continued to voice that she was an leandro and stated that she didn't know where she was. Client was repositioned again for comfort. No further concerns at this time. Will continue to monitor for pt safety and psychiatric concerns.
[2021-06-15 19:28] VITALS: BP 102/69
[2021-06-15 19:50] VITALS: BP 102/69
[2021-06-15 23:06] LABS: GLYCOHEMOGLOBIN (HGB A1C) 8.6 % (4.8-5.6)
--- NOTE | 2021-06-16 02:56 | NUR ---
PATIENT CARE WAS RESUMED AT 1900. SHE WAS IN THE DININIG AREA. ALERT BUT CONFUSED. SHE DENIES PAINS. BS ACTIVE X4 QUADS. SHE TOK HER MEDS WHOLE AND REQUESTED TO G T BED BUT REFUSED TO LAY DOWN WHEN THE NURSE TOOK HER TO THE ROOM. SHE IS INCONTINENT OF BOWEL AND BLADDER.NURSE PROVIDES PAVEL CARE AND Q2HRS TURN. SHE DENIES SI/AVH/HI.
[2021-06-16 11:08] VITALS: BP 109/61
--- NOTE | 2021-06-16 14:48 | NUR ---
Sitting at table attempting to eat this AM. Took several bites. Initially resistant to taking meds but then took crushed in pudding. Able to state name and stated it was Oct but not Halloween yet. Appropriate statements at times but other times had confused speech. Asleep during lunch so did not eat at all. Breath sounds clear. Reg HR auscultated. Color pink with brisk capillary refill and palpable peripheral pulses. Hyperactive bowel sounds over soft, rounded abdomen. Incontinent of yellow urine. Able to stand with alot of assistance and transfer to commode. Sleeping in chair until mid afternoon. Spoke with Dr. Azul r/t BG, lack of PO intake. Agreed to BID BG.
[2021-06-16 16:30] VITALS: BP 114/54
[2021-06-16 16:54] LABS: CALCIUM 9.9 mg/dL (8.5-10.1); POTASSIUM 3.8 mmol/L (3.5-5.1)
[2021-06-16 16:56] LABS: CREATININE 2.5 mg/dL (0.6-1.0)
[2021-06-16 19:52] VITALS: BP 114/54
--- NOTE | 2021-06-16 21:33 | NUR ---
PATIENT REFUSED HS MEDICATION AND PUDDING THAT I HAD CRUSH MEDS INTO. PATIENT DOES NOT ANSWER ASSESSMENT QUESTION AND REMAINS ON A 1:1 PATIENT HAS IV FLUIDS RUNNING. PATIENT HAS SLEPT THROGH THE NIGHT.
[2021-06-17 04:41] LABS: CALCIUM 9.9 mg/dL (8.5-10.1); CREATININE 1.9 mg/dL (0.6-1.0); POTASSIUM 3.9 mmol/L (3.5-5.1)
[2021-06-17 07:30] VITALS: BP 136/68
[2021-06-17 07:31] VITALS: BP 136/68
--- NOTE | 2021-06-17 11:34 | NUR ---
Alert and orientated to name. Denies SI/HI. Wants to know why she is in hospital and does not recall IV being placed yesterday. Repeatedly stating that she does not want to take meds, they are too big to swallow. When given crushed in yogurt she spit out. Crushed in NS and was only able to take one med. Much more active and verbal this AM. Eating breakfast independently but only taking small sips of fluids. Breath sounds clear. Reg HR auscultated. Color pink with brisk capillary refill and palpable peripheral pulses. Continent of yellow urine per BSC. Active bowel sounds over soft, rounded abdomen. Able to stand but unsteady with transfer. Saline lock per L arm soft and flat, flushes easily. NS hung and infusing at 250 cc/hr per order. Currently sleeping without s/o distress.
--- NOTE | 2021-06-17 19:28 | NUR ---
ASSUMED CARE ON 06/17/21 @ 1900, SEATED IN [place] CHAIR IN THE DAY ROOM. A&OX1. WILL CONTINUE TO MONITOR FOR SAFETY AND COMFORT PER UNIT PROTOCOL.
[2021-06-17 19:35] VITALS: BP 130/41
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
--- NOTE | 2021-06-17 23:53 | NUR ---
2200 RETIRED @ HS X1 ASSIST, INSISTS ON SLEEPING WITH HER GLASSES ON AND THE LIGHTS ON IN THE BEDROOM. COMPLIANT WITH MEDICATIONS CRUSHED IN PUDDING. A&OX1 VERBAL BUT REPEATS HERSELF. SMILING AND FUSSING ABOUT TAKING MEDS, DRINKING WATER ETC. RETURNED TO SLEEP AFTER MEDS AND RESTING QUIETLY, RESPIRATIONS EVEN AND UNLABORED. WILL CONTINUE TO MONITOR PER UNIT PROTOCOL. BED IN LOW POSITION, BED ALARM SET.
[2021-06-18 05:27] LABS: HEMATOCRIT 34.3 % (37.0-47.0); HEMOGLOBIN 11.6 gm/dL (12.0-15.0); MCH 31.8 pg (26.0-34.0); MCHC 33.7 g/dL (28.0-37.0); MCV 94.3 fL (80.0-100.0); RBC 3.64 mil/uL (4.20-5.00); RDW 13.9 % (10.5-14.5); WBC 5.6 thou/uL (4.0-11.0)
[2021-06-18 05:32] LABS: CALCIUM 9.2 mg/dL (8.5-10.1); CREATININE 1.1 mg/dL (0.6-1.0); POTASSIUM 3.8 mmol/L (3.5-5.1)
[2021-06-18 09:39] VITALS: BP 132/60
[2021-06-18 10:44] VITALS: BP 132/60
--- NOTE | 2021-06-18 11:20 | NUR ---
RESUMMED CARE FROM OVERNIGHT SHIFT THIS AM, PATIENT IN ROOM LYING QUIET IN BED. I GOT PATIENT UP FOR BREAKFAST SHE ATE I CRUSHED HER MEDICATION AND FEED IT TO HER. PATIENT WAS AT FIRST REFUSING BUT I WAS ABLE TO GET HER TO TAKE; I ALSO ENCOURAGED HER TO DRINK WATER. PATIENT DENIES SI/HI/AH/VH AT PRESENT PATIENTS LINGS CLEAR. PATIENTS ABDOMEN SOFT BOWEL SOUNDS PRESENT, PATIENT SOMETIMES IS OPPOSTIONAL WITH CARES. PATIENT DOES NOT PARTICIPATE IN GROUPS WILL CONTINUE TO MONITOR PATIENT FOR SAFETY AND BEHAVIORS.
[2021-06-18 20:20] VITALS: BP 150/64
--- NOTE | 2021-06-19 01:51 | NUR ---
PATIENT WAS IN HER BED WHEN ASSUMED CARE OF PATIENT TONIGHT. ON ASSESSMENT SHE WAS CALM AND A/0X2. SHE STATED THAT SHE DID NOT WANT TO TAKE ANY MEDS TONIGHT AND THAT SHE WAS SLEEPY AND JUST WANTED TO BED LEFT ALONE TO SLEEP. SHE DENIED SI/HI/AVH. HER HS GLUCOSE WAS 150. SHE HAD NOT EATEN SUPPER. SHE AWOKE WITHIN AN HOUR AND WANTED TO EAT. EVENING MEAL WARMED AND GIVEN TO HER. SHE ATE 95% OF MEAL.SHE WENT BACK TO BED. SHE SLEEPS WITH THE LIGHT ON. SHE AWOKE AT 0100 AND WAS FUSSY AND STATING THAT WE LEFT HER IN BED ALL DAY AND SHE HASN'T BEEN OUT OF IT. SHE STATES SHE HASN'T EATEN ALL DAY. SHE HAS BRUISING ON ARMS FROM IV ATTEMPTS AND THINKS THE STAFF ARE BRUISING HER. SHE DOESN'T REMEMBER HAVING THE IV. ASSISTED PATIENT UP TO BSC ASSIST X 2. PATIENT SAT FOR AWHILE BEFORE SHE COULD URINATE. SHE DIDN'T WANT ANYONE TO LEAVE HER. SHE WAS TEARY EYED AND HUNGRY. I CHECKED HER GLUCOSE AGAIN AND IT WAS 210. WE ARE ENCOURAGING FLUIDS AND SHE DID DRINK 240 CC OF DIET [place] SODA AND SF PUDDING. SHE VOIDED 250CC URINE. SHE WAS ASSISTED BACK TO BED. PATIENT RESTING IN BED WITH HOB UP FOR COMFORT. BED IN LOW POSITION AND BED ALARM IS ON. ROUTINE ROUNDS TO ASSESS SAFETY AND STATUS OF PATIENT.
[2021-06-19 09:36] VITALS: BP 140/57
[2021-06-19 13:24] VITALS: BP 140/57
--- NOTE | 2021-06-19 16:43 | NUR ---
Resummed care from overnight shift this am. Client was in [place] in activity area eating breakfast. Client presented calm and pleasant during this time. Upon assessment, client was oriented to self, but was not oriented to situation, time, or place. Client denied any depression or anxiety, and stated that she was doing well when asked. Client denied any homicidal and suicidal thoughts when asked, stating "oh no, never." Client also denied any visual or audio hallucinations when asked, stating that she thought those "would be scary." Client bowel sounds present; lung sounds clear. During medication pass, client was hesistant to take medication. Staff crushed up medication for client, and fed them to client with apple sauce. Client ate small spoonfuls of apple sauce at this time, stating that she didn't think she could eat any more, but was encouraged to eat a few more to finish medications. After this, client was given an ensure, as client ate less than 25% of her food. Client was encouraged to stay out in activity area for group, and participated in group. She was then taken back to bed, and laid down as she expressed need to rest. During 1200, staff came in to give client her 1130 dose of zyprexa. Client was once again initially hesitant, but took medication with soda. Client stated "I don't know why I have to take medication so often-sweetie I can't take this medication-I don't like how this tastes" but was encouraged to take medication as opposed to injection that would be given if she didn't. Client agreed that this was a better option, and took the medication. Client was assured that lunch would there soon, and encouraged to eat lunch as well, given that she had not eaten well at breakfast. Client stated that she would try. At 1500, client refused mag oxide, stating she didn't need it and wanted to sleep. Client is currently in activity area waiting for dinner at this time. No further concerns. Will continue to monitor for safety and psychiatric concerns.
[2021-06-19 19:00] VITALS: BP 141/50
[2021-06-19 20:20] VITALS: BP 141/50
--- NOTE | 2021-06-20 01:55 | NUR ---
PATIENT WAS SITTING UP IN DINING ROOM AT BEGINNING OF SHIFT TILL BED TIME. PT USUALLY REFUSES MEDS AND TONIGHT WHEN SHE ASKED WHEN SHE COULD GO TO BED, I TOLD HER WE WOULD AFTER SHE TAKES HER PILLS. PT TOOK HER HS MEDS WITH WATER AND WITHOUT ISSUE. PT HAD A LARGE BM AT SHIFT CHANGE TONIGHT. SHE DENIES PAIN, SI/HI/AVH. SHE HAS BEEN CALM, SMILING AND PLEASANT. SHE DID DRINK TWO CHOCOLATE ENSURES TONIGHT. SHE LIKES CHOCOLATE ALOT. SHE ALSO ATE A SF PUDDING FOR HS SNACK. PATIENT HAD FRESH WATER PLACED AT BEDSIDE WHICH SHE DOES SIP ON. PATIENT LIKES TO SLEEP WITH LIGHT ON IN ROOM AND LIKES TO KNOW SOMEONE IS AROUND AND CHECKING ON HER. WHEN LIGHT GOT TURNED OFF PATIENT BEGAN SCREAMING. SHE CALMED SOON THE LIGHT WAS TURNED BACK ON. SHE USES BSC FOR TOILETING AND IS AN ASSIST X 2. PT RESTING IN BED AT THIS TIME. BED IN LOW POSITION AND BED ALARM IS ON. CONTINUING TO MONITOR.
[2021-06-20 05:39] LABS: CALCIUM 9.4 mg/dL (8.5-10.1); MAGNESIUM 1.6 mg/dL (1.8-2.4); POTASSIUM 3.3 mmol/L (3.5-5.1)
[2021-06-20 05:46] LABS: MCH 31.8 pg (26.0-34.0); MCHC 34.2 g/dL (28.0-37.0); MCV 92.9 fL (80.0-100.0); RBC 3.77 mil/uL (4.20-5.00); RDW 13.2 % (10.5-14.5)
[2021-06-20 06:26] LABS: FOLIC ACID 12.3 ng/mL (8.6-58.9)
[2021-06-20 09:38] VITALS: BP 115/55
--- NOTE | 2021-06-20 14:25 | NUR ---
PATIENT CARE ASSUMED AT 0700 - AT THIS TIME STAFF FOUND PATIENT IN ROOM AWAKE. REFUSED TO GET UP FOR BREAKFAST - STATED TIRED - CONSTIPATED AND CLAIMS UPSET STOMACH - LATER TOOK MEDICATIONS WITH ALOT OF ENCOURAGEMENT IN PUDDING - STAYED IN BED BUT STAFF INSISTED SHE HAD TO GET UP AND AMBULATE WITH ASSISTANCE. WAS IRRITATED BUT COMPLIANT. HAD LUNCH AND LATER TOOK 11:30 ZYPREXA ALONG WITH HER LUNCH. TOLERATED WELL ONCE AGAIN IN PUDDING. PATIENT DENIES S/I OR H/I - CONFUSED - DILUSTIONAL - STATED SON WAS OUTSIDE HER DOOR. COMING TO TAKE CARE OF HER. ALERT TO SELF BASICALLY BUT PLEASANT- COMPLIANT WITH MEDICATIONS WITH ALOT OF ENCOURAGEMENT AND REASSURANCE.
--- NOTE | 2021-06-20 14:59 | NUR ---
TUNDE contacted Cat, [facility] liason, concerning discharge of the Pt. TUNDE informed it is recommended the Pt have hospice st discharge. Cat asked for the referral to be sent [facility]. Cat also requested clinical notes. Referral faxed to [facility] Updates sent to the facility
--- NOTE | 2021-06-20 16:32 | NUR ---
TUNDE recieved a call from Kendy Soni, , from [facility]. Kendy informed they can accept for hospice at discharge. Kendy requested a phone call regarding time of discharge. Pt will discharge back to [facility] 06/21/2021 @1130. [facility] will provide transportation.
[2021-06-20 20:01] VITALS: BP 148/81
[2021-06-20 20:51] VITALS: BP 148/81
--- NOTE | 2021-06-21 02:56 | NUR ---
Tatiana was alert and oriented to self and time this shift as she new it was June. Upon approach pt was anxious, tearful, and delusional. She repeatedly told this RN that her son was laying on the sidewalk and had a heart attack. Pt truly believed this and did not respond to emotional support but did respond to redirection and distraction. Pt reported she had been having diarhea, therefore HS docusate was held. Pt was otherwise medication compliant. Pt had a snack this evening, and had an ensure when she woke up around 0100. Pt has since been awake in the dayroom in a christy-chair with a chair alarm. Pt denied SI/HI/ISRAEL this shift. She denied any other physical complaints and appeared comfortable throughout the shift. Will continue to monitor.
[2021-06-21] MEDS ORDERED: OLANZAPINE2.5 MG PO (08:39)
[2021-06-21] MEDS ORDERED: MIRALAX17 GM PO (08:41)
[2021-06-21] MEDS ORDERED: OLANZAPINE ODT5 MG PO (09:45)
[2021-06-21 11:13] VITALS: BP 152/65
[2021-06-21] MEDS ORDERED: VITAMIN D3125 MC1 PO (11:19)
--- NOTE | 2021-06-21 11:27 | NUR ---
MESSAGE LEFT FOR DAUGHTER WADE SAHA REGARDING PENDING 1130 DC THIS AM-REPORT CALLED TO [facility]-BELONGINGS SECURED-PT ASSISTED TO BSC WITH SBA X2 STAFF-CLOTHING CHANGED AND PERINEAL CARE PROVIDED AT 1115-AWAITING TRANSPORT TO DC TO [facility]. PT IS ALERT-ORIENTED X2-SITTING QUIETLY IN DAYROOM AWAITING TRANSPORT TO FACILITY-DENIES COMPLAINTS AT [facility]SI TIME
--- NOTE | 2021-06-21 11:43 | NUR ---
PT ASSISTED INTO WC BY NURSING STAFF AND [employer] STAFF-DISCHARGED ALONG WITH PERSONAL BELONGINGS AT 1140 ALERT AND PLEASANT AT TIME OF DC
== END 2021-06-21 11:44 | DRG 884 ==
LOC: SBH
PROVIDERS: Internal Medicine; Nurse Practitioner Family; ADMIT Psychiatry & Neurology Psychiatry; ATTEND Psychiatry & Neurology Psychiatry
DX: F03.91 Unspecified dementia, unspecified severity, with behavioral disturbance (principal); F01.51 Vascular dementia, unspecified severity, with behavioral disturbance; N17.9 Acute kidney failure, unspecified; R45.851 Suicidal ideations; E11.9 Type 2 diabetes mellitus without complications; F31.9 Bipolar disorder, unspecified; I10 Essential (primary) hypertension; E78.5 Hyperlipidemia, unspecified; R45.850 Homicidal ideations; F29 Unspecified psychosis not due to a substance or known physiological condition; Z20.822 Contact with and (suspected) exposure to COVID-19; Z90.710 Acquired absence of both cervix and uterus; Z88.6 Allergy status to analgesic agent; Z88.8 Allergy status to other drugs, medicaments and biological substances; Z86.73 Personal history of transient ischemic attack (TIA), and cerebral infarction without residual deficits; Z79.82 Long term (current) use of aspirin; Z79.899 Other long term (current) drug therapy
CPT/HCPCS: 10880

== ENCOUNTER 2021-06-14 16:16 | Emergency (ER) | payer OTHER ==
[~2021-06-14] VITALS: Ht 170.2 cm; Wt 68.0 kg
--- NOTE | ~2021-06-14 | EMS ---
[place] [address] EMS Patient Care Report Name: DANNY HAYS Room #: DEP CHELSEA Abdalla#: [id number] Admission: 06/14/21 Attend Phys: Discharge: 06/14/21 Date of : 45 Report #: [id number] THIS REPORT FOR: //name// Report Transmitted: 06/15/2021 11:18 EMS Care Summary [place], [place]/[facility] Incident [id number] @ 06/14/2021 16:01 Incident Location [address] [place] [address] Patient JANUSZ MOREIRA Male, 37 Years 1984-01-10 Patient Address [address] [place] [address] Patient History Other, Patient Allergies Penicillin allergy, Patient Medications Donaldson, Amoxicillin, Chief Complaint ABD PAIN WITH N/V Disposition Transported No Lights/[place] Dispatch Reason Sick Person Transported To [facility] Narrative UPON ARRIVAL WE FOUND OUR 37 YEAR OLD MALE PATIENT SITTING ON THE STEPS IN FRONT OF HIS APT WITH P36 BY HIS SIDE COMPLAINING OF DIFFUSE, CRAMPY LOWER ABD [place] [id number] EMS Patient Care Report Name: DANNY HAYS Room #: [facility] Melania.#: [id number] Admission: 06/14/21 Attend Phys: Discharge: 06/14/21 Date of : 45 Report #: [id number] PAIN WITH N/V X 24 HRS. THE PATIENT STATES HE WAS SEEN AT THE [facility] ER YESTERDAY MORNING FOR A DENTAL ABSCESS AND HIS SYMPTOMS STARTED SHORTLY AFTER TAKING HIS FIRST DOSE OF THE RXS HE WAS PRESCRIBED. THE PATIENT REQUESTS TRANSPORT BACK TO [facility] FOR EVALUATION. Initial Vitals @16:12P: 61,R: 18,BP: 176/95,Pain: 8/10,GCS: 15,CO: 2,SpO2: 97,Revised Trauma: 12, @16:21P: 60,R: 18,BP: 178/90,Pain: 8/10,GCS: 15,SpO2: 98,Revised Trauma: 12, Assessments @16:10MENTAL:Person Oriented,Place Oriented,Time Oriented,Event Oriented,SKIN:HEENT:Eyes: Right Pupil: 4-mm,Eyes: Left Pupil: 4-mm,Head/Face: No Abnormalities,Neck/Airway: No Abnormalities,LUNG SOUNDS:Left Lower: Tenderness,Right Lower: Tenderness,General: Vomiting,General: Nausea,ABDOMEN:Left Lower: Tenderness,Right Lower: Tenderness,General: Vomiting,General: Nausea,PELVIS//GI:No Abnormalities,EXTREMITIES:Left Arm: No Abnormalities,Right Arm: No Abnormalities,Left Leg: No Abnormalities,Right Leg: No Abnormalities,PULSE:Radial: 2+ Normal,NEURO:No Abnormalities, Impression Abdominal Pain Procedures @16:10 ALS Assessment Response: UnchangedSucceeded Timeline 15:59,Call Received 15:59,Dispatch Notified 16:01,Dispatched 16:02,En Route 16:09,On Scene 16:10,At Patient 16:10,ALS Assessment,Response: UnchangedSucceeded, 16:12,BP: 176/95 M,PULSE: 61,RR: 18 R,SPO2: 97 Ox,ETCO2: ,BG: ,PAIN: 8,GCS: 15, 16:14,Depart Scene 16:21,BP: 178/90 M,PULSE: 60,RR: 18 R,SPO2: 98 Ox,ETCO2: ,BG: ,PAIN: 8,GCS: 15, 16:22,At Destination 16:29,Call Closed Disclaimer v1.1 Copyright 2020 [employer] This EMS Care Summary contains data elements from the applicable legal record (which may be displayed differently). It is designed to provide pertinent information for the following purposes: continuity of care, clinical quality, [address] [address] EMS Patient Care Report Name: TORREY HAYSARET Room #: DEP Lianne#: [id number] Admission: 06/14/21 Attend Phys: Discharge: 06/14/21 Date of : 45 Report #: [id number] and state data reporting. The complete legal record is available to ED staff and administrators of the receiving hospital in ES's Patient Tracker. All data is provided "as is."
[2021-06-14] MEDS ORDERED: LORAZEPAM 0.50.5 MG PO (16:49)
[2021-06-14 17:11] LABS: ABSOLUTE NEUTROPHILS 4.2 thou/uL (1.4-8.2); EOSINOPHILS 2.8 % (0.0-3.0); HEMATOCRIT 42.9 % (37.0-47.0); HEMOGLOBIN 14.1 gm/dL (12.0-15.0); LYMPHOCYTES 23.2 % (24.0-44.0); MCH 31.1 pg (26.0-34.0); MCHC 32.9 g/dL (28.0-37.0); MCV 94.5 fL (80.0-100.0); MONOCYTES 9.2 % (1.0-8.0); PLATELET COUNT 310 thou/uL (150-400); POLYS 63.8 % (36.0-66.0); RBC 4.54 mil/uL (4.20-5.00); RDW 13.2 % (10.5-14.5); WBC 6.7 thou/uL (4.0-11.0)
[2021-06-14 17:14] LABS: URINE BLOOD NEGATIVE (Negative); URINE CLARITY CLEAR; URINE COLOR YELLOW; URINE GLUCOSE-RANDOM* NEGATIVE (Negative); URINE KETONES 2+ (Negative); URINE LEUKOCYTES-REFLEX NEGATIVE (Negative); URINE NITRITE-REFLEX NEGATIVE (Negative); URINE PROTEIN (DIPSTICK) NEGATIVE (Negative); URINE SPECIFIC GRAVITY >= 1.030 (1.005-1.035)
[2021-06-14 17:14] LABS: CALCIUM 9.9 mg/dL (8.5-10.1); POTASSIUM 3.5 mmol/L (3.5-5.1)
[2021-06-14 17:17] LABS: ICTOTEST (BILI CONFIRMATORY) Negative (Negative); URINE BILIRUBIN NEGATIVE (Negative)
[2021-06-14 17:20] LABS: ALBUMIN 3.4 g/dL (3.4-5.0); DIRECT BILIRUBIN 0.3 mg/dL (<0.1-0.2); TOTAL BILIRUBIN 0.9 mg/dL (0.2-1.0); TOTAL PROTEIN 8.1 g/dL (6.4-8.2)
[2021-06-14 19:30] VITALS: BP 139/54
--- NOTE | 2021-06-15 07:03 | EKG ---
[facility] [place] [address] ELECTROCARDIOGRAM REPORT Name: DANNY HAYS [id number] Admission: 06/14/21 Attend Phys: Discharge: 06/14/21 Date of : 45 Report #: [id number] [facility] ED Test Date: 2021-06-14 Test Time: 16:27:30 Pat Name: DANNY HAYS Department: Room: Gender: F [employer] Manager: : 1945 Requested By: Jaspreet Brewer Order Number: [id number] MD: Chon Rodriguez Measurements Intervals [place] Rate: 89 P: 17 CT: 172 QRS: 0 QRSD: 65 T: 45 QT: 431 QTc: 525 Interpretive Statements Sinus rhythm Probable left atrial enlargement Abnormal R-wave progression, early transition Left ventricular hypertrophy Compared to ECG 01/23/2020 19:15:20 Left ventricular hypertrophy now present ST (T wave) deviation no longer present Early repolarization no longer present Electronically Signed On 06-15-2021 7:03:25 CDT by Chon Rodriguez [email or web address] <ELECTRONICALLY SIGNED> By: Chon Rodriguez MD, [facility] 06/15/21 0703 [id number] Chon Rodriguez MD, [facility] /EPI
== END 2021-06-14 21:33 ==
LOC: ER 16:16
PROVIDERS: Student in an Organized Health Care Education/Training Program
DX: F03.91 Unspecified dementia, unspecified severity, with behavioral disturbance (principal); Z20.822 Contact with and (suspected) exposure to COVID-19; Z90.710 Acquired absence of both cervix and uterus; Z79.82 Long term (current) use of aspirin; Z79.84 Long term (current) use of oral hypoglycemic drugs; Z79.891 Long term (current) use of opiate analgesic; Z79.899 Other long term (current) drug therapy; Z88.6 Allergy status to analgesic agent